=== PATIENT | female | born 1980 | race Caucasian/White ===

== ENCOUNTER → 2018-03-27 13:34 | Outpatient (CLI) | payer MEDICAID, SELFPAY ==
[2018-04-01 17:18] LABS: HPV HC, High Risk Negative (Negative)
== END ==
PROVIDERS: Visit Provider Obstetrics & Gynecology
DX: Z12.4 Encounter for screening for malignant neoplasm of cervix (principal)
CPT/HCPCS: 87624; 88175; G0145

== ENCOUNTER → 2018-06-12 14:18 | Outpatient (CLI) | payer MEDICAID, SELFPAY ==
[2018-06-12 16:40] LABS: hCG Titer Quant., Serum 16022 mIU/mL (<9 non-preg)
[2018-06-12 18:05] LABS: Chlamydia Trachomatis by PCR Negative (Negative); Neisserai gonorrhoeae by PCR Negative (Negative); Probe Check PASS; Sample Adequacy Control PASS; Specimen Processing Control PASS
[2018-06-17 15:41] LABS: HPV Reflexed? NOT INDICATED
== END ==
PROVIDERS: Visit Provider Obstetrics & Gynecology
DX: O20.0 Threatened abortion (principal); Z32.01 Encounter for pregnancy test, result positive; Z12.4 Encounter for screening for malignant neoplasm of cervix; Z11.3 Encounter for screening for infections with a predominantly sexual mode of transmission; Z3A.00 Weeks of gestation of pregnancy not specified
CPT/HCPCS: 36415; 84702; 87491; 87591; 88175; G0145

== ENCOUNTER → 2018-06-17 13:38 | Outpatient (CLI) | payer MEDICAID, SELFPAY | PROVIDERS: Visit Provider Obstetrics & Gynecology | DX: Z34.81 Encounter for supervision of other normal pregnancy, first trimester (principal) | CPT/HCPCS: 36415; 84702 ==

== ENCOUNTER → 2018-06-26 15:17 | Outpatient (CLI) | payer MEDICAID, SELFPAY ==
[2018-06-26 17:11] LABS: Absolute Lymphocyte Count 2.35 X10^3/ul (0.83-4.51); Absolute Neutrophil Count 5.7 X10^3/uL (2.0-7.7); Basophil# 0.07 X10^3/uL; Basophil% 0.8 % (0-1); Eosinophil# 0.16 X10^3/uL; Eosinophils% 1.8 % (0-5); Hemoglobin 14.4 g/dl (12.0-15.0); Lymphocyte # 2.35 X10^3/ul (4.0); Mean Corp Hgb Conc 33.5 g/gl (32-36); Mean Corpuscular Volume 86.7 fL (81-99); Mean Platelet Vol. 9.8 fl (6.2-12.0); Monocyte# 0.74 X10^3/uL; Monocyte% 8.2 % (0-10); Neutrophil # 5.68 X10^3/uL (2.7-7.7); Neutrophil % 62.8 % (47-70); Platelet Count 393 K/mm3 (150-450); RBC Distribution Width CV 13.6 % (11.6-14.6); Red Blood Count 4.96 M/mm3 (4.2-5.4)
[2018-06-26 17:18] LABS: Color, Urine Yellow (Yellow); Glucose, Dipstick Normal (Normal); Ketone-Dipstick Negative (Negative); Leukocyte Esterase-Dipstick Negative /ul (Negative); Nitrite-Dipstick Negative (Negative); Occult Blood-Urine Negative /ul (Negative); Protein-Dipstick Negative (Negative); Urine Bilirubin Dipstick Negative (Negative); Urine Clarity Clear (Clear); Urine Urobilinogen Normal (Normal)
[2018-06-26 17:30] LABS: POSITIVE COUNT NO; POSITIVE DIFFERENTIAL NO; POSITIVE MORPHOLOGY NO
[2018-06-26 17:44] LABS: Thyroid Stim Hormone (TSH) 0.96 uIU/mL (0.358-3.74)
[2018-06-26 17:51] LABS: Amphetamine Urine VISTA POSITIVE (<1000 ng/mL); Barbiturate Urine VISTA NEGATIVE (< 200 ng/mL); Benzodiazepine Urine VISTA NEGATIVE (< 200 ng/mL); Cocaine Urine VISTA NEGATIVE (< 300 ng/mL); Ecstacy Urine VISTA NEGATIVE (< 500 ng/mL); Methadone Urine VISTA NEGATIVE (< 300 ng/mL); PCP Urine VISTA NEGATIVE (< 25 ng/mL); THC Urine VISTA NEGATIVE (< 50 ng/mL); Vista UDS pH Range 6
[2018-06-27 00:19] LABS: Prenatal RPR NONREACTIVE (NONREACTIVE)
[2018-06-27 11:01] LABS: HIV - WCH Non-Reactive (Nonreactive); Rubella IgG 79.5 IU/mL
[2018-06-28 13:45] LABS: HEPATITIS B SURFACE AG Negative (Negative)
[2018-06-28 13:46] LABS: Hep C Antibodies 0.1 s/co ratio (0.0-0.9)
== END ==
PROVIDERS: Visit Provider Obstetrics & Gynecology
DX: Z34.81 Encounter for supervision of other normal pregnancy, first trimester (principal)
CPT/HCPCS: 36415; 80307; 81002; 84443; 85025; 86703; 86762; 86803; 87340

== ENCOUNTER 2018-07-29 05:35 | Day surgery (SDC) | payer MEDICAID, SELFPAY ==
[2018-07-29] VITALS (8 sets, daily range): BP systolic 104–153; BP diastolic 68–100; PULSE 18–102; RESP 16–20; TEMP 36.3–36.6; O2SAT 97–100; BMI 23.9
[2018-07-29 06:35] LABS: Hematocrit 40.4 % (37-47); Hemoglobin 13.9 g/dl (12.0-15.0); Mean Corp Hgb Conc 34.4 g/gl (32-36); Mean Corpuscular Hgb 29.2 pg (27.0-32.0); Mean Corpuscular Volume 84.9 fL (81-99); Mean Platelet Vol. 9.3 fl (6.2-12.0); Platelet Count 342 K/mm3 (150-450); RBC Distribution Width CV 13.2 % (11.6-14.6); RBC Distribution Width SD 40.9 fl (35.1-43.9); Red Blood Count 4.76 M/mm3 (4.2-5.4); White Blood Count 19.8 K/mm3 (4.4-11.0)
[2018-07-29 06:41] LABS: International Normalized Ratio 0.9; Partial Thromboplast Time 27.3 Seconds (24.1-36.2); Prothrombin Time (Protime)PT. 12.2 SECONDS (11.7-14.9)
[2018-07-29 06:42] LABS: Scan Indicated on CBC? Y/N NO
--- NOTE | 2018-07-29 07:30 | POC_PTH ---
PATIENT: NATANAEL HARLEY LOC: [facility] [place] U#:[id number] AGE/SX: 37/F ROOM: RE07/29/[address]: Dr. Nas Pillai MD : [id number] BED: DIS: 07/29/2018 SPEC #: [id number] RECD: 07/29/18 09:10 STATUS: MOISE ROMMEL #: [id number] DAVON: 07/29/18 07:[address]: Nas Pillai DEPT: SURGICAL PATHOLOGY RECD BY: Kumar Hagen ENTERED: 07/29/18 10:19 SP TYPE: PROD CONC OTHR DR: No Primary Care Phys Tissues: Product of conception, NOS Procedures: Surgery Specimen Level IV HEADER OPERATION: Dilation and curettage, suction PRE-OP DIAGNOSIS: Missed TISSUE SUBMITTED: Products of conception MICROSCOPIC DIAGNOSIS Products of conception: Immature chorionic villi, decidual and gestational endometrium (products of conception). SJ:yasmany 07/30/18 MICROSCOPIC DESCRIPTION Slides are reviewed. GROSS DESCRIPTION Received in fixative is one container labeled with the patient's name and designated products of conception. The specimen consists of multiple irregular fragments of red-horowitz soft tissue that in aggregate measure 10.5 x 7 x 2 cm. parts are not grossly recognized. Cab Supervisor sections are submitted in one cassette. / AM:yasmany 07/29/18 TC:5 CPT: 47675
--- NOTE | 2018-07-29 07:55 | PCM.DC ---
You will use the following diet at home:: No restrictions Your food should be the consistency of: Regular Discharge Activity: Return to Normal Activity, May Drive, May not drive while taking narcotic pain medications., May Shower Return to work on:: 08/01/18 May resume sexual activity in: 3 weeks Call your doctor if your incision/area has: Sudden Increased Bleeding, Increased Pain/ Swelling, Foul Smelling Discharge Call your doctor if you observe: Fever of 101 or Higher, Inability to urinate, Inability to have a bowel movement, Using more than one pad per hour, Shortness of breath, Chest pain, Calf discomfort, Uncontrolled pain Cleanse incision/area with: Soap & Water Allergies/Adverse Reactions: Allergies No Known Allergies Allergy (Verified 07/25/18 09:21) Medications to take at Discharge Ibuprofen [Ibuprofen Ib] 200 mg PO PRN PRN 07/25/18 Ibuprofen 600 mg PO Q6H PRN PRN #30 tab 07/29/18 Oxycodone [Oxyir] 5 mg PO Q4H PRN PRN 7 Days #14 tab 07/29/18 The following prescriptions were given: Oxycodone [Oxyir] 5 mg PO Q4H PRN PRN 7 Days #14 tab PRN Reason: Severe Pain (6-10/10) Ibuprofen 600 mg PO Q6H PRN PRN #30 tab PRN Reason: pain or cramping Primary Care Physician: Care Physician,No Primary [Primary Care Provider] - Test Results: Test results from this visit will be discussed in further detail at your follow-up appointment, if applicable. Please Follow Up With: Nas Pillai MD When: one week Proposed Discharge Date: 07/29/18
--- NOTE | 2018-07-29 07:57 | PCM.OPRPT ---
Problem List (1) Missed with demise before 20 completed weeks of gestation Status: Acute Report of Operation Date of Procedure: 07/29/18 Pre-Operative Diagnosis: Missed Post-Operative Diagnosis: Same Surgery/Procedure Performed:: Suction Dilation and Curretage Description of Surgical Findings:: Uterus 10 weeks size. Cervix with open external OS. Products of conception consistent with embryonic demised at about 10 weeks EGA. sanding machine tender automatic: None Type of Anesthesia:: MAC Anesthesiologist: Fawad Bedoya Special Medications: none Specimen's removed: Products of conception Drains: none Estimated Blood Loss (mL): 20cc Fluids Replaced: 1000cc LR Description of Procedure: Linda was taken to the OR with IV running. Was given Cefotetan 2 grams intravenously for surgical prophylaxis. MAC anesthesia was introduced without complication. She was then prepped and draped in the dorsal lithotomy position. The bladder was drained. A weighted speculum was placed and the anterior lip of the cervix was grasped with a single toothed tenaculum. The cervix was dilated to 27 Monegasque. A 9mm suction curette was placed into the uterine cavity. Suction was applied and products of conception obtained. The suction curette was removed and a sharp curettage was performed. The suction curette was reintroduced and the remaining products of conception obtained. Hemostasis was excelolent. All instruments were removed from the vagina. Sponge and instrument counts were correct. SHe was reversed from anesthesia and taken to the recovery room in stable condition. SHe had previously been given Rhogam in the office last week. Grafts/Implants Used: none - Complications none - Admit VTE Documentation VTE Present on Admission: No VTE Mechan Device Prophylaxis: SCD's VTE Pharm Prophylaxis ordered?: No
== END 2018-07-29 09:29 | disposition home or self-care (01) ==
LOC: SDC 05:40 → AC 05:44
PROVIDERS: Visit Provider Obstetrics & Gynecology
PROC: (CPT 59820; principal; 2018-07-29 07:15)
DX: O02.1 Missed abortion (principal); F17.200 Nicotine dependence, unspecified, uncomplicated; F90.9 Attention-deficit hyperactivity disorder, unspecified type
CPT/HCPCS: 59820; 85027; 85610; 85730; 86850; 86870; 86900; 88305; J7120

== ENCOUNTER 2018-08-23 10:08 | Emergency (ER) | payer MEDICAID, SELFPAY ==
[2018-08-23 10:09] VITALS: BP 167/114; PULSE 108; RESP 14; TEMP 36.9; O2SAT 100; BMI 23.1
--- NOTE | 2018-08-23 10:27 | US_ITS ---
STUDY: ULTRASOUND TRANSVAGINAL CLINICAL: Female, 37 years old. Pelvic pain. Recent DTC on 08/05/2018 TECHNIQUE: Transvaginal. Significant tenderness and pain, limited exam COMPARISON: None. FINDINGS: Normal uterine size measuring 7.2 x 8.2 x 6.8 cm in maximal craniocaudal dimension. There are no myometrial masses. Fluid distended endometrium measuring roughly 1.4 cm in thickness. Normal uterine cervix. Nonvisualized ovaries There is no free fluid in the pelvis. US/Transvaginal Non- IMPRESSION: Fluid distended endometrium with thickening. Nonvisualized ovaries. Electronically Signed: Vitaly Almaraz DO at 11:47 EDT Tel , Service support ,
--- NOTE | 2018-08-23 10:31 | ED.DCSUM_ITS ---
- ER Visit Summary Date of Service: 08/23/18 Chief Complaint: Abdominal pain History of Present Illness: The patient is a 37 F who presents for 3 weeks of intermittent lateral lower abdominal pain. Patient states she had a D&C 3 weeks ago after a miscarriage at 8 weeks . Since then patient has been having intermittent lower abdominal crampiness that alternates sides. It is worse with movement and bending over. Patient has taken gabapentin without any relief but has not tried any Tylenol or NSAIDs. She began having vaginal bleeding yesterday which is like a normal period, however she said her beverage host did not think she should be having a period yet. Patient states she spoke to her g ynecologist but did not really get an answer on her abdominal pain. She denies fever, nausea, vomiting, diarrhea, blood in her stool. She has had discomfort with urination and hematuria. Patient is also concerned about her blood pressure being high today. Physical Examination: Vital signs: afebrile, hemodynamically stable, no hypoxia on room air General: well nourished, well developed, in no distress Skin: warm, dry, no rash, no pallor HEENT: normocephalic and atraumatic; PERRL, EOMI, moist mucous membranes Cardiovascular: regular rate and rhythm without murmurs, no peripheral edema, 2+ pulses all distal extremities Respiratory: No increased work of breathing, lungs are clear to auscultation bilaterally, no rales, rhonchi or wheezing Abdominal: Abdomen is soft, mildly tender diffusely with normoactive bowel sounds, no guarding or rebound, no masses : Normal external genitalia, speculum exam shows small amount of homogenous dark blood without clots in the vaginal vault, no discharge, no tissue, no bright red blood, no lacerations or lesions. Cervix not directly visualized secondary to patient discomfort with the exam. Manual exam showed office closed, no cervical motion tenderness, no adnexal masses, mild bilateral adnexal tenderness. MSK: Moves all extremities, no deformities, normal strength Neuro: Awake and alert, oriented ?4. No facial droop, sensation and motor function intact and symmetric Test Results: Abnormal Lab Results 08/23/18 08/23/18 08/23/18 10:15 10:15 10:30 WBC 7.0 RBC 4.50 Hgb 13.2 Hct 39.5 MCV 87.8 MCH 29.3 MCHC 33.4 RDW 13.9 RDW Differential 44.9 H Plt Count 318 MPV 9.2 Immature Gran % (Auto) 0.400 Neut % (Auto) 51.2 Lymph % (Auto) 32.7 Duval % (Auto) 11.0 H Eos % (Auto) 3.3 Baso % (Auto) 1.4 H Absolute Neuts (auto) 3.6 Absolute Lymphs (auto) 2.30 Total Counted Not Reportable Sodium Potassium Chloride Carbon Dioxide Anion Gap BUN Creatinine Estim Creat Clear Calc Est GFR (MDRD) Af Amer Est GFR (MDRD) Non-Af BUN/Creatinine Ratio Glucose Calcium Total Bilirubin AST ALT Alkaline Phosphatase Total Protein Albumin Globulin Albumin/Globulin Ratio Lipase Urine Color Red Urine Clarity Turbid Urine pH 7.0 Ur Specific [place] 1.015 Urine Protein 100 H Urine Glucose (UA) Normal Urine Ketones Negative Urine Occult Blood 250 H Urine Nitrite Negative Urine Bilirubin Negative Urine Urobilinogen Normal Ur Leukocyte Esterase 25 H Urine RBC > 100 SEEN Urine WBC 0-5 SEEN Ur Squamous Epith Cells 0-5 SEEN Urine Bacteria 0 SEEN Urine Mucus 0 SEEN Urine Test Negative 08/23/18 10:30 WBC RBC Hgb Hct MCV MCH MCHC RDW RDW Differential Plt Count MPV Immature Gran % (Auto) Neut % (Auto) Lymph % (Auto) Duval % (Auto) Eos % (Auto) Baso % (Auto) Absolute Neuts (auto) Absolute Lymphs (auto) Total Counted Sodium 142 Potassium 3.6 Chloride 106 Carbon Dioxide 29.0 Anion Gap 7 BUN 12 Creatinine 0.95 Estim Creat Clear Calc 69.33 Est GFR (MDRD) Af Amer 84 Est GFR (MDRD) Non-Af 70 BUN/Creatinine Ratio 12.6 Glucose 92 Calcium 9.1 Total Bilirubin 0.30 AST 19 ALT 30 Alkaline Phosphatase 74 Total Protein 7.6 Albumin 4.0 Globulin 3.6 Albumin/Globulin Ratio 1.1 Lipase 140 Urine Color Urine Clarity Urine pH Ur Specific [place] Urine Protein Urine Glucose (UA) Urine Ketones Urine Occult Blood Urine Nitrite Urine Bilirubin Urine Urobilinogen Ur Leukocyte Esterase Urine RBC Urine WBC Ur Squamous Epith Cells Urine Bacteria Urine Mucus Urine Test Clinical Impression(s) from Imaging Studies Transvaginal US 08/23/18 10:27 IMPRESSION: Fluid distended endometrium with thickening. Nonvisualized ovaries. Electronically Signed: Vitaly Almaraz DO at 11:47 EDT Tel , Service support , Medications Given Discontinued Medications Ketorolac Tromethamine (Toradol) 15 mg IV X1 ONE Stop: 08/23/18 10:29 Last Admin: 08/23/18 10:55 Dose: 15 mg Emergency Department Course and Treatment: Patient was given IV Toradol for her pain. Abdominal exam did not show any concerns for an acute surgical abdomen. Labs and a urinalysis were obtained. Transvaginal ultrasound performed. Urinalysis showed hematuria without infection. Labs were unremarkable, including for or anemia. Pelvic exam was consistent with a menstrual period and showed no cervical motion tenderness or significant adnexal tenderness that would be concerning for torsion or tubo-ovarian abscess. Pelvic ultrasound showed no ovarian or adnexal pathology and showed a uterus consistent with a menstrual period, with no heterogenicity that would be concerning for further retained products of conception. Patient was discussed with Dr. Melanie Ramirez, who requested patient follow-up in the office this week if she continues to have issues. Patient was given a prescription for naproxen to help with her abdominal pain. In my professional opinion, her acutely worsening intermittent lower abdominal pain is most likely uterine cramping secondary to dysmenorrhea. While discussing the results and the plan with the patient, she mentioned her blood pressure and asked why it has been high. I instructed patient I would be back shortly to discuss the blood pressure with her. Patient left before I could return and discuss her concern for hypertension. Patient was hypertensive in the emergency department, but left without giving me the opportunity to develop a treatment and follow-up plan for her. Her labs showed no signs of endorgan damage. Treatment Plan: [] Disposition: [] Impression: Dysmenorrhea, abdominal cramping, uncontrolled hypertension This note was generated with DBVu dictation software. It may contain incorrect words, spelling, and punctuation that were not noted in review of the chart prior to signing ED Disposition - Plan for ED Patient: Disposition: Home or Assisted Living Chief Complaint: Abd Pain Instructions: ED Cramping Menstrual Prescriptions: RX: Naproxen [Naprosyn] 500 mg PO BID PRN #20 tab Referrals: Nas Pillai MD [STAFF PHYSICIAN] - 1 Week if not improving Care Physician,No Primary [Primary Care Provider] - Additional Instructions: Your bleeding is likely due to a normal menstrual period. Please use the naproxen for abdominal cramping. Follow-up with your OB physician this week if you continue to have concerns about your lower abdominal pain and menstrual?like bleeding. If you have any worsening of your condition or any new concerning symptoms, please return immediately to the emergency department for another evaluation.
[2018-08-23 10:35] LABS: Bacteria 0 SEEN /hpf (None Seen); Mucous, Urine 0 SEEN /hpf (<or=2+)
[2018-08-23 10:48] LABS: Absolute Neutrophil Count 3.6 X10^3/uL (2.0-7.7); Basophil% 1.4 % (0-1); Eosinophil# 0.23 X10^3/uL; Eosinophils% 3.3 % (0-5); Hematocrit 39.5 % (37-47); Hemoglobin 13.2 g/dl (12.0-15.0); Lymphocyte % 32.7 % (19-41); Mean Corp Hgb Conc 33.4 g/gl (32-36); Mean Corpuscular Hgb 29.3 pg (27.0-32.0); Mean Corpuscular Volume 87.8 fL (81-99); Mean Platelet Vol. 9.2 fl (6.2-12.0); Monocyte# 0.77 X10^3/uL; Neutrophil % 51.2 % (47-70); POSITIVE COUNT NO; POSITIVE DIFFERENTIAL NO; POSITIVE MORPHOLOGY NO; Platelet Count 318 K/mm3 (150-450); RBC Distribution Width CV 13.9 % (11.6-14.6); RBC Distribution Width SD 44.9 fl (35.1-43.9)
[2018-08-23 10:48] LABS: Internal QC Validated? YES +Cl - CLEAR BKGD
[2018-08-23 10:49] LABS: Pregnancy, Urine Negative Negative
[2018-08-23 10:51] LABS: Color, Urine Red (Yellow); Glucose, Dipstick Normal (Normal); Ketone-Dipstick Negative (Negative); Leukocyte Esterase-Dipstick 25 /ul (Negative); Nitrite-Dipstick Negative (Negative); Occult Blood-Urine 250 /ul (Negative); Protein-Dipstick 100 mg/dl (Negative); Specific Gravity, Urine 1.015 (1.002-1.030); Urine Bilirubin Dipstick Negative (Negative); Urine Clarity Turbid (Clear); Urine Urobilinogen Normal (Normal)
[2018-08-23] MEDS: Ketorolac 15 MG/ML Vial IV (10:55)
[2018-08-23 10:57] LABS: Red Blood Cells-Urine > 100 SEEN /hpf (0-5)
[2018-08-23 10:58] LABS: Squamous Epithelial Cells - UA 0-5 SEEN /hpf (5-10); White Blood Cells 0-5 SEEN /hpf (0-5)
[2018-08-23 11:01] LABS: ALB/GLOB Ratio 1.1 RATIO (0.9-2.4); AST(SGOT) 19 U/L (15-37); Alanine Aminotransfer ALT/SGPT 30 U/L (13-56); Alkaline Phosphatase 74 U/L (45-117); Anion Gap 7 (5-15); BUN 12 mg/dL (7-18); BUN/Creat Ratio 12.6 RATIO (10-20); Calcium,Total 9.1 mg/dL (8.5-10.1); Chloride 106 mmol/L (98-107); Creatinine, Serum 0.95 mg/dL (0.55-1.02); EST Glomerular Filtration Rate 70 mL/min (>60); Est Glom Filt Rate - Afr Amer 84 mL/min (>60); Estimated Creatinine Clearance 69.33 ml/min; Globulin 3.6 g/dL (2.2-4.2); Glucose 92 mg/dL (74-106); Lipase 140 U/L (73-393); Potassium 3.6 mmol/L (3.5-5.1); Protein, Total 7.6 g/dL (6.4-8.2); Sodium Level 142 mmol/L (136-145)
[2018-08-23 11:24] VITALS: BP 166/111; PULSE 96; RESP 21; O2SAT 99
--- NOTE | 2018-08-23 12:07 | ED.DEP ---
ED Disposition - Plan for ED Patient: Disposition: Home or Assisted Living Chief Complaint: Abd Pain Instructions: ED Cramping Menstrual Prescriptions: Naproxen [Naprosyn] 500 mg PO BID PRN #20 tab Referrals: Care Physician,No Primary [Primary Care Provider] - Nas Pillai MD [STAFF PHYSICIAN] - 1 Week if not improving Additional Instructions: Your bleeding is likely due to a normal menstrual period. Please use the naproxen for abdominal cramping. Follow-up with your OB physician this week if you continue to have concerns about your lower abdominal pain and menstrual?like bleeding. If you have any worsening of your condition or any new concerning symptoms, please return immediately to the emergency department for another evaluation.
[2018-08-23 12:21] VITALS: BP 161/111; PULSE 111; RESP 15; O2SAT 100
== END 2018-08-23 12:38 | disposition home or self-care (01) ==
PROVIDERS: Emergency Provider Emergency Medicine
DX: N94.6 Dysmenorrhea, unspecified (principal); R10.9 Unspecified abdominal pain; I10 Essential (primary) hypertension; R30.0 Dysuria; R31.9 Hematuria, unspecified; Z72.0 Tobacco use; Z98.890 Other specified postprocedural states
CPT/HCPCS: 76830; 80053; 81001; 81025; 83690; 85025; 99283; A4216

== ENCOUNTER → 2018-10-21 13:47 | Outpatient (CLI) | payer MEDICAID, SELFPAY ==
[2018-10-23 09:41] LABS: ANTINUCLEAR ANTIBODIES DIRECT Negative (Negative)
--- OUTSIDE RECORDS SUMMARY | 2018-12-17 03:10 | XMS RPT_ITS ---
:1980 Author Organization [facility] Care Team Providers Name Role Phone MENDY NANCE Attending Unavailable MENDY NANCE Attending Unavailable DILLON LAURENT Attending Unavailable OTILIO PILLAI Referring Unavailable NO PRIMARY CAREMD Primary Care Unavailable Rosas, Otilio Attending Unavailable Seals, Otilio Attending Unavailable SealOtilio hoover Attending Unavailable SealOtilio hoover Attending Unavailable Sealkiko, Otilio Attending Unavailable Otilio Pillai Referring Unavailable Primay Care Physicia, No Primary Care Unavailable Primay Care Physicia, No Primary Care Unavailable Rhonda Ibanez Attending Unavailable SealOtilio hoover Attending Unavailable Primay Care Physicia, No Primary Care Unavailable PROBLEMS PROBLEMS DATE TYPE CONDITION / CODE ATTENDING STATUS SOURCE 10/26/2018 Active Other specified MENDY NANCE Active [place] disorders of eye and [facility] Other adnexa / Linch H57.89(ICD-10) Repository 11/04/2018 Unknown N96 - Recurrent SealsOtilio loss / Community N96(ICD-10) Hospital Repository 09/13/2018 Active Other symptoms and MENDY NANCE Active [place] signs involving [facility] Other emotional state / Linch R45.89(ICD-10) Repository 09/13/2018 Active Elevated MENDY NANCE Active [place] blood-pressure [facility] Other reading, without Linch diagnosis of Repository hypertension / R03.0(ICD-10) 07/31/2018 Unknown G89.18 - Other acute SealsOtilio postprocedural pain Community / G89.18(ICD-10) Hospital Repository 06/26/2018 Unknown Z34.81 - Encounter SealsOtilio for supervision of [facility] other normal Hospital , first Repository trimester / Z34.81(ICD-10) 06/12/2018 Unknown O20.0 - Threatened SealsOtilio / Community O20.0(ICD-10) Hospital Repository 03/27/2018 Unknown Z12.4 - Encounter SealsOtilio for screening for [facility] malignant neoplasm Hospital of cervix / Repository Z12.4(ICD-10) PROCEDURES PROCEDURES No Procedure Records FoundRESULTS RESULTS ED PROV NOTE Observed: 10/26/2018 Status: COMPLETED Source: [place] 8:03 PM [facility] RE[facility]ITORY HNO ID: [id number] Author: Mnedy Wall DO Service: Emergency Medicine Author Type: Physician Type: ED Provider Notes Filed: 10/26/2018 9:28 PM Note Text: ED Provider Note Patient Name: Natanael Swanson SERVICE DATE: 10/26/18 History Patient presents with: Eye Pain Natanael Swanson is a 38 year old female with history of ADD, hypercholesterolemia who presents with Eye Pain. Patient took OTC medications prior to arrival. - Symptoms began this afternoon. - Severity: moderate - Timing: constant - Quality: irritated - Eye Pain is exacerbated by putting anything in her eye/anything touching her eye. - Eye Pain is not exacerbated by not touching it. - Symptoms are associated with blurry vision, feels like something is in her eye. - Symptoms are not associated with headache, vomiting, nausea, weakness, loss of vision. - Improved by nothing. - Not improved by OTC medications and time. Patient states she felt like something got in her left eye a few hours ago. It has felt irritated. States she feels like something is on the left upper/outer area of her eye. Her SO went and got visine drops and it made it worse when she put them in. She flushed her eye out. As long as she doesn't touch her eye or put anything in it, it does not bother her much, just irritated, if she puts anything in it, then it bothers her more. Light irritates her eye. Eye is watery. Vision is blurry. No vision loss. No increased pain in a dark room. No headache or vomiting. No trauma. She does not wear contacts. PAST MEDICAL HISTORY Diagnosis Date - ADD (attention deficit disorder) - Hypercholesterolemia - Spontaneous miscarriage x 2 - Tobacco abuse - Vitamin D deficiency PAST SURGICAL HISTORY Procedure Laterality Date - NONE FAMILY HISTORY Problem Relation Age of Onset - other (add [Other]) Brother - Thyroid Mother - Colon Cancer Unknown NONE - Breast Cancer Unknown NONE - Arthritis Sister psoriatic - Arthritis Father - Arthritis Mother - Arthritis Paternal Grandmother Social History Social History Main Topics - Smoking status: Current Every Day Smoker Packs/day: 1.00 Years: 12.00 Types: Cigarettes - Smokeless tobacco: Never Used - Alcohol use Yes Comment: socially - Drug use: No - Sexual activity: Yes Partners: Male ALLERGIES No Known Allergies Review of Systems Constitutional: Negative for chills and fever. HENT: Negative for facial swelling, sinus pain and sinus pressure. Eyes: Positive for photophobia, pain, redness and visual disturbance. Negative for discharge and itching. Respiratory: Negative for shortness of breath. Cardiovascular: Negative for chest pain. Gastrointestinal: Negative for nausea and vomiting. Musculoskeletal: Negative for neck pain. Skin: Negative for color change, pallor, rash and wound. Allergic/Immunologic: Negative for immunocompromised state. Neurological: Negative for dizziness, syncope, facial asymmetry, weakness, numbness and headaches. Psychiatric/Behavioral: Negative for agitation and confusion. Physical Exam BP 153/98 Pulse 104 Temp 98.1 Resp 16 Ht 5' 4 (1.63m) Wt 135 lb (61.2kg) SpO2 99% BMI 23.16 kg/(m2). Physical Exam Constitutional: She is oriented to person, place, and time. She appears well-developed and well-nourished. No distress. HENT: Head: Normocephalic and atraumatic. Right Ear: External ear normal. Left Ear: External ear normal. Mouth/Throat: Oropharynx is clear and moist. No temporal artery tenderness or swelling bilaterally. Eyes: Pupils are equal, round, and reactive to light. EOM and lids are normal. Lids are everted and swept, no foreign bodies found. Right eye exhibits no chemosis and no discharge. Left eye exhibits no chemosis and no discharge. Right conjunctiva is not injected. Right conjunctiva has no hemorrhage. Left conjunctiva is injected. Left conjunctiva has no hemorrhage. No scleral icterus. Slit lamp exam: The left eye shows fluorescein uptake (? slight uptake ?). The left eye shows no corneal ulcer, no foreign body, no hyphema, no hypopyon and no anterior chamber bulge. Both pupils are equal and reactive to light. No FB seen ? Slight small area of uptake on cornea but no well defined abrasion seen. No dendrites. Negative danyel's sign. Lid everted, no FB under eyelid, I did sweep the eyelid with a cotton tip applicator and no FB seen on cotton tip. Neck: Normal range of motion. No JVD present. Cardiovascular: Normal rate, regular rhythm and intact distal pulses. Pulmonary/Chest: Effort normal and breath sounds normal. No stridor. No respiratory distress. Neurological: She is alert and oriented to person, place, and time. Skin: Skin is warm and dry. Capillary refill takes less than 2 seconds. She is not diaphoretic. Psychiatric: She has a normal mood and affect. Her behavior is normal. Nursing note and vitals reviewed. Diagnostic Testing ED Labs Ordered and Reviewed - No data to display Procedures ED Course / Clinical Impression Clinical Impressions as of Oct 26 2102 Eye irritation MDM / Disposition / Plan ? Small uptake on left cornea. No well defined abrasion. No FB. Pupils equal and reactive. She notes the sensation that something is in her eye, but did flush her eye out multiple times. No headache, vomiting, vision loss or temporal artery tenderness/swelling. Her eye appears irritated and she has the sensation of irritation more than pain. Will treat her with antibiotic eye drops. I discussed following up with ophthalmology (she states she is due for a full eye exam anyway) and have given referral to Dr. Weiss, I stressed the importance of returning to the ED for any new/worsening symptoms. Patient is agreeable to plan. Disposition The patient was discharged. Counseled patient and significant other regarding suspected diagnosis. As well as the need for follow-up. Discharged home with verbal and written instructions. They were instructed to return as needed for persistent or worsening symptoms or any new concerns. Condition at disposition is stable. SIGNATURE: DO Mendy Vale DO 10/26/182127 ED NOTE Observed: 10/26/2018 Status: COMPLETED Source: [place] 7:33 PM [facility] REPOSITORY HNO ID: [id number] Author: Eliu Snell (Rn) Minh RN Service: (none) Author Type: Registered Nurse Type: ED Notes Filed: 10/26/2018 7:33 PM Note Text: Dr Nance at bedside. ED NOTE Observed: 10/26/2018 Status: COMPLETED Source: [place] 7:20 PM [facility] REPOSITORY HNO ID: [id number] Author: Eliu Snell (Rn) Minh RN Service: (none) Author Type: Registered Nurse Type: ED Notes Filed: 10/26/2018 7:20 PM Note Text: Patient informed the name of medication, why we are giving it, possible side effects, what they may expect to feel, and was offered a chance to ask questions, prior to the administration of tetracaine ED NOTE Observed: 10/26/2018 Status: COMPLETED Source: [place] 7:09 PM [facility] REPOSITORY HNO ID: [id number] Author: Eliu BryanRn) Minh RN Service: (none) Author Type: Registered Nurse Type: ED Notes Filed: 10/26/2018 7:10 PM Note Text: L eye pain; unknown injury; redness noted. MISCELLANEOUS LAB Collected: 10/21/2018 Status: F Source: [place] PROCEDURE 2 1:51 PM [facility] REPOSITORY Order Comment: Comments: #[id number] ANTIPHOSPHOLIPID AB, FZ PLASMA, SERUM RMT List Test(s) Ordered by Physician: #[id number] ANTIPHOSPHOLIPID AB, FZ PLASMA, RMT SERUM TYPE CODE TESTS RESULT OUT OF RANGE REFERENCE UNITS LAB L801.1543 Normal [facility] TEST 2 Result Comment: TEST RESULT LIMITS Antiphospholipid Syndrome aPTT 27.4 sec 22.9 - 30.2 PT 10.6 sec 9.6 - 11.5 INR 1.0 0.9 - 1.1 Reference interval is for non-anticoagulated patients. Suggested INR therapeutic range for Vitamin K antagonist therapy: Standard Dose (moderate intensity therapeutic range): 2.0 - 3.0 Higher intensity therapeutic range 2.5 - 3.5 Thrombin Time 16.6 sec 0.0 - 23.0 dRVVT 37.3 sec 0.0 - 47.0 Hexagonal Phase Phospholipid 6 sec 0 - 11 Anticardiolipin Ab,IgG,Qn <9 GPL U/mL 0 - 14 Negative: <15 Indeterminate: 15 - 20 Low-Med Positive: >20 - 80 High Positive: >80 Anticardiolipin Ab,IgM,Qn <9 MPL U/mL 0 - 12 Negative: <13 Indeterminate: 13 - 20 Low-Med Positive: >20 - 80 High Positive: >80 Beta-2 Glycoprotein I Ab, IgG <9 GPI IgG units 0 - 20 Please Note: The reference interval reflects a 3SD or 99th percentile interval, which is thought to represent a potentially clinically significant result in accordance with the International Consensus Statement on the classification criteria for definitive antiphospholipid syndrome (APS). J Thromb Haem 2006;4:295-306. Beta-2 Glycoprotein I Ab, IgM <9 GPI IgM units 0 - 32 Please Note: The reference interval reflects a 3SD or 99th percentile interval, which is thought to represent a potentially clinically significant result in accordance with the International Consensus Statement on the classification criteria for definitive antiphospholipid syndrome (APS). J Thromb Haem 2006;4:295-306. APS Panel Interpretation Please refer to the Coag Studies Interp Report. Coag Studies Interp Report Interpretation Note COAGULATION: ANTIPHOSPHOLIPID SYNDROME ASSESSMENT ASSESSMENT A lupus anticoagulant is not detected. aCL and B2GP1 antibodies are normal. ANTIPHOSPHOLIPID SYNDROME ASSESSMENT SUMMARY - No evidence of a lupus anticoagulant, B2GP1 or aCL antibodies. As antibody titers may fluctuate with time, repeat testing may be indicated if antiphospholipid syndrome is suspected. ANTIPHOSPHOLIPID SYNDROME ASSESSMENT DEFINITIONS - aCL- anticardiolipin (antibodies to cardiolipin); B2GP1- antibodies to Beta-2 Glycoprotein 1; LA- lupus anticoagulant (which is identified with the dRVVT and/or hexagonal phospholipid neutralization assays); aPL- antibodies to protein/phospholipid complexes such as LA, aCL, and B2GP1 antibodies; APS- antiphospholipid syndrome; DTI-direct thrombin inhibitors. - HEATER TENDER: For questions regarding panel interpretation, please contact Cristiano Selby M.D. at [facility]/[employer] at . DISCLAIMER These assessments and interpretations are provided as a convenience in support of the physician-patient relationship and are not intended to replace the physician's clinical judgment. They are derived from national guidelines in addition to other evidence and expert opinion. The clinician should consider this information within the context of clinical opinion and the individual patient. SEE GUIDANCE FOR ANTIPHOSPHOLIPID SYNDROME ASSESSMENT:(1) Breanna V et al. J Thromb Haemost. 2009; 7(10):5318-9334. (2) Kelly S et al. J Thromb Haemost. 2006;4(2):295-306. (3) Adi DA et al. Blood. 2007;110(9): 4480-1951. TESTING PERFORMED AT [facility]. ORIGINAL REPORT ON FILE IN LAB CONTAINS ADDITIONAL TEST SITE INFORMATION. Performed By: #### L801.1543 #### [facility] [address] [place], [address] ANTINUCLEAR ANTIBODIES Collected: 10/21/2018 Status: F Source: [place] DIRECT 1:50 PM [facility] REPOSITORY TYPE CODE TESTS RESULT OUT OF RANGE REFERENCE UNITS LAB L3100.5475 Negative Normal Negative BRI-DIRECT Result Comment: Performed at: [address] [id number] Senior Compensation Analyst: Indio Arnold PhD, Phone: [phone] Performed By: #### L3100.5475 #### [facility] (refer to report for specific site) refer to report for address and phone number FACT V LEIDEN Collected: 10/21/2018 Status: F Source: [place] MUTATION 1:50 PM [facility] REPOSITORY TYPE CODE TESTS RESULT OUT OF RANGE REFERENCE UNITS LAB L4500.5100 . Normal FACTOR V Comment LEIDEN Result Comment: Result: Negative (no mutation found) Factor V Leiden is a specific mutation (R506Q) in the factor V gene that is associated with an increased risk of venous thrombosis. Factor V Leiden is more resistant to inactivation by activated protein C. As a result, factor V persists in the circulation leading to a mild hyper- coagulable state. The Leiden mutation accounts for 90% - 95% of APC resistance. Factor V Leiden has been reported in patients with deep vein thrombosis, pulmonary embolus, central retinal vein occlusion, cerebral sinus thrombosis and hepatic vein thrombosis. Other risk factors to be considered in the workup for venous thrombosis include the [id number] mutation in the factor II (prothrombin) gene, protein S and C deficiency, and antithrombin deficiencies. Anticardiolipin antibody and lupus anticoagulant analysis may be appropriate for certain patients, as well as homocysteine levels. Contact your local [facility] for information on how to order additional testing if desired. Genetic counselors are available for health care providers to discuss results at [phone] Methodology: DNA analysis of the Factor V gene was performed by allele- specific PCR. The diagnostic sensitivity and specificity is >99% for both. Molecular-based testing is highly accurate, but as in any laboratory test, diagnostic errors may occur. All test results must be combined with clinical information for the most accurate interpretation. This test was developed and its performance characteristics determined by [facility]. It has not been cleared or approved by the Food and Drug Administration. References: Cintia Jones (1995). Clin Lab Med 16:169-186. Jovana Srinivasan, PhD, FAC Fabiana Galarza, PhD, FACMG Beto GardunoS., PhD, FAC Madelyn Nina, PhD, FACMG Walter Payne, PhD, FAC Chalino Li PhD, FAC Performed By: #### L4500.5000, L4500.8350 #### [facility] (refer to report for specific site) refer to report for address and phone number VON WILLEBRAND FACTOR Collected: 10/21/2018 Status: F Source: [place] ACTIVITY 1:50 PM [facility] REPOSITORY TYPE CODE TESTS RESULT OUT OF RANGE REFERENCE UNITS LAB L4500.8350 50-200 % Normal vWF ACTIVITY 60 Result Comment: Performed at: - [facility] [address] [place], [place] [id number] Senior Compensation Analyst: Sharyn Beck MD, Phone: [phone] Performed at: BN - [facility] [address] [id number] Senior Compensation Analyst: Nasreen Gil MD, Phone: [phone] Performed By: #### L4500.5000, L4500.8350 #### [facility] (refer to report for specific site) refer to report for address and phone number MISCELLANEOUS LAB Collected: 10/21/2018 Status: F Source: [place] PROCEDURE 1:50 PM [facility] REPOSITORY Order Comment: Comments: #[id number] INHERITED THROMBO PANEL, WB, PLASMA AND SERUM Test(s) Ordered: #[id number] INHERITED THROMBO PANEL, WB, PLASMA ,SER TYPE CODE TESTS RESULT OUT OF RANGE REFERENCE UNITS LAB L801.1541 Normal [facility] TEST Result Comment: TEST RESULT LIMITS Inherited Thromb. of Antithrombin Activity 131 % 75 - 135 Direct Xa inhibitor anticoagulants such as rivaroxaban, apixaban and edoxaban will lead to spuriously elevated antithrombin activity levels possibly masking a deficiency. Protein C-Functional 187 High % 73 - 180 Elevated protein C activity is of no known clinical significance. Protein S, Free 134 % 57 - 157 This test was developed and its performance characteristics determined by [facility]. It has not been cleared or approved by the Food and Drug Administration. Act.Prt.C Resist. 2.5 ratio 2.2 - 3.5 The APCR result may be falsely increased (masking an abnormal, low APCR result) in patients on direct Xa inhibitor (e.g., rivaroxaban, apixaban, edoxaban) or a direct thrombin inhibitor (e.g., dabigatran) anticoagulant therapy due to assay interference by these drugs. Factor II, DNA Analysis NEGATIVE No mutation identified. Comment: A point mutation ([id number]) in the factor II (prothrombin) gene is the second most common cause of inherited thrombophilia. The incidence of this mutation in the [place] population is about 2% and in the population it is approximately 0.5%. This mutation is rare in the and population. Being heterozygous for a prothrombin mutation increases the risk for developing venous thrombosis about 2 to 3 times above the general population risk. Being homozygous for the prothrombin gene mutation increases the relative risk for venous thrombosis further, although it is not yet known how much further the risk is increased. In women heterozygous for the prothrombin gene mutation, the use of estrogen containing oral contraceptives increases the relative risk of venous thrombosis about 16 times and the risk of developing cerebral thrombosis is also significantly increased. In the prothrombin gene mutation increases risk for venous thrombosis and may increase risk for stillbirth, placental abruption, pre-eclampsia and growth restriction. If the patient possesses two or more congenital or acquired thrombophilic risk factors, the risk for thrombosis may rise to more than the sum of the risk ratios for the individual mutations. This assay detects only the prothrombin [id number] mutation and does not measure genetic abnormalities elsewhere in the genome. Other thrombotic risk factors may be pursued through systematic clinical laboratory analysis. These factors include the R506Q (Leiden) mutation in the Factor V gene, plasma homocysteine levels, as well as testing for deficiencies of antithrombin III, protein C and protein S. Additional Information: Genetic Counselors are available for health care providers to discuss results at [phone] Methodology: DNA analysis of the Factor II gene was performed by PCR amplification followed by restriction analysis. The diagnostic sensitivity is >99% for both. All the tests must be combined with clinical information for the most accurate interpretation. Molecular-based testing is highly accurate, but as in any laboratory test, diagnostic errors may occur. This test was developed and its performance characteristics determined by [facility]. It has not been cleared or approved by the Food and Drug Administration. Tylert SR, et al. Blood. 1996; 88:5111-1963. Brandy MUELLER. Circulation. 2004; 110:e15-e18. Jose I, et al. Arterioscler Thromb Vasc Biol. 1999; 19:700-703. Jovana Srinivasan, PhD, [facility] Fabiana Galarza, PhD, [facility] Mable Boles M.S., PhD, [facility] Madelyn Nina, PhD, [facility] Walter Payne, PhD, [facility] Chalino Li, PhD, [facility] TESTING PERFORMED AT [facility]. ORIGINAL REPORT ON FILE IN LAB CONTAINS ADDITIONAL TEST SITE INFORMATION. Performed By: #### L801.1541 #### [facility] [address] [place], [place], [address] ED NOTE Observed: 09/13/2018 Status: COMPLETED Source: [place] 6:09 PM [facility] REPOSITORY HNO ID: [id number] Author: Darren BryanRn) RIYA Bejarano Service: Emergency Medicine Author Type: Registered Nurse Type: ED Notes Filed: 09/13/2018 6:10 PM Note Text: Patient states she is feeling much better. Physician aware. Will recheck BP in 5 [id number] after registration is done. ED PROV NOTE Observed: 09/13/2018 Status: COMPLETED Source: [place] 5:54 PM [facility] RE[facility] HNO ID: [id number] Author: Mendy Wall DO Service: Emergency Medicine Author Type: Physician Type: ED Provider Notes Filed: 09/13/2018 6:27 PM Note Text: ED Provider Note Patient Name: Natanael Swanson SERVICE DATE: 09/13/18 History Patient presents with: Anxiety Blood Pressure Check Natanael Swanson is a 38 year old female with history of miscarriage, hypercholesterolemia who presents with anxiety. The patient arrived escorted by significant other. - Symptoms began 2 weeks prior to arrival. Onset was gradual, and symptoms are waxing/waning. - Severity: moderate - Timing: intermittent - Chronicity: new - Context: stressful life event - Treatment compliance: some of the time - Time since last psychoactive mediation taken: yesterday - Symptoms are associated with crying. - Symptoms are not associated with chest pain and shortness of breath, abdominal pain, leg pain or swelling, suicidal ideation, hallucinations. - Improved by nothing. - Not improved by hydroxyzine. - Risk factors: recent stressful event Patient has a miscarriage a couple weeks ago, has been anxious, tearful off and on since. Has tried hydroxyzine which has not helped. No chest pain, shortness of breath, abdominal pain, leg pain or swelling. No suicidal or homicidal ideation. No hallucinations. No previous psychiatric admission. PAST MEDICAL HISTORY Diagnosis Date - ADD (attention deficit disorder) - Hypercholesterolemia - Spontaneous miscarriage x 2 - Tobacco abuse - Vitamin D deficiency PAST SURGICAL HISTORY Procedure Laterality Date - NONE FAMILY HISTORY Problem Relation Age of Onset - other (add [Other]) Brother - Thyroid Mother - Colon Cancer Unknown NONE - Breast Cancer Unknown NONE - Arthritis Sister psoriatic - Arthritis Father - Arthritis Mother - Arthritis Paternal Grandmother Social History Social History Main Topics - Smoking status: Current Every Day Smoker Packs/day: 1.00 Years: 12.00 Types: Cigarettes - Smokeless tobacco: Never Used - Alcohol use Yes Comment: socially - Drug use: No - Sexual activity: Yes Partners: Male ALLERGIES No Known Allergies Review of Systems Constitutional: Negative for chills and fever. Respiratory: Negative for cough and shortness of breath. Cardiovascular: Negative for chest pain, palpitations and leg swelling. Gastrointestinal: Negative for abdominal pain, nausea and vomiting. Genitourinary: Negative for dysuria and flank pain. Musculoskeletal: Negative for back pain and neck pain. Skin: Negative for rash and wound. Allergic/Immunologic: Negative for immunocompromised state. Neurological: Negative for dizziness, syncope, weakness, numbness and headaches. Psychiatric/Behavioral: Negative for agitation, behavioral problems, confusion, hallucinations, self-injury and suicidal ideas. The patient is nervous/anxious. Physical Exam BP 169/107 Pulse 100 Temp (Src) 99.1 (Temporal Artery) Resp 18 Ht 5' 4 (1.63m) Wt 140 lb (63.5kg) SpO2 100% BMI 24.02 kg/(m2). Physical Exam Constitutional: She is oriented to person, place, and time. She appears well-developed and well-nourished. HENT: Head: Normocephalic and atraumatic. Right Ear: External ear normal. Left Ear: External ear normal. Eyes: Conjunctivae are normal. No scleral icterus. Neck: No JVD present. Cardiovascular: Normal rate, regular rhythm and intact distal pulses. Pulmonary/Chest: Effort normal and breath sounds normal. No respiratory distress. Abdominal: Soft. Bowel sounds are normal. She exhibits no distension. There is no tenderness. There is no rebound and no guarding. Musculoskeletal: She exhibits no edema. Neurological: She is alert and oriented to person, place, and time. Skin: Skin is warm. Capillary refill takes less than 2 seconds. No rash noted. Psychiatric: Her behavior is normal. Her mood appears anxious (tearful). Nursing note and vitals reviewed. Diagnostic Testing ED Labs Ordered and Reviewed - No data to display Procedures ED Course / Clinical Impression Clinical Impressions as of Sep 13 1825 Feeling anxious Elevated blood pressure reading without diagnosis of hypertension MDM / Disposition / Plan Patient anxious/stressed since recent miscarriage. Hydroxyzine not helping. No suicidal or homicidal ideation, no hallucinations. Ativan given and will observe. Time: 623 pm Patient feels much better. Patient states she is no longer anxious. She is smiling. Blood pressure improved, as well. The patient was told to follow up with their PCP because their BP was elevated (over 119/79) I instructed the patient on reasons to return to the ED, otherwise follow up with primary (referral given). Disposition The patient was discharged. Counseled patient and significant other regarding suspected diagnosis. As well as the need for follow-up. Discharged home with verbal and written instructions. They were instructed to return as needed for persistent or worsening symptoms or any new concerns. Condition at disposition is stable. SIGNATURE: DO Mendy Vale DO 09/13/18 1827 ED NOTE Observed: 09/13/2018 Status: COMPLETED Source: [place] 5:30 PM [facility] RE[facility] ID: [id number] Author: Draren (Rn) RIYA Bejarano Service: Emergency Medicine Author Type: Registered Nurse Type: ED Notes Filed: 09/13/2018 5:31 PM Note Text: Patient informed: the name of medication, why we are giving it, possible side effects, what they may expect to feel, and was offered a chance to ask questions, prior to the administration of ativan ED NOTE Observed: 09/13/2018 Status: COMPLETED Source: [place] 5:28 PM [facility] REPOSITORY [facility] ID: [id number] Author: Lashonda BryanRn) RIYA Briones Service: Emergency Medicine Author Type: Registered Nurse Type: ED Notes Filed: 09/13/2018 5:29 PM Note Text: Pt reports having anxiety attacks for the passed 2 weeks; pt reports 4th miscarriage about that time. Pt reports intermittent issues with elevated BP, not presently on medication. EMERGENCY DEPARTMENT Observed: 08/23/2018 Status: F Source: [place] SUMMARY 5:55 PM [facility] REPOSITORY [facility] Medical Records Department [address] [place] [address] Emergency Department Summary 08/23/18 1029 MR#: [id number] Acct: [id number] Name: NATANAEL SWANSON Rep #: [id number] : 1980 37 From: Rhonda Ibanez MD PCP: Care Physician, No Primary Status: DEP ER - ER Visit Summary Date of Service: 08/23/18 Chief Complaint: Abdominal pain History of Present Illness: The patient is a 37 F who presents for 3 weeks of intermittent lateral lower abdominal pain. Patient states she had a D AND C 3 weeks ago after a miscarriage at 8 weeks . Since then patient has been having intermittent lower abdominal crampiness that alternates sides. It is worse with movement and bending over. Patient has taken gabapentin without any relief but has not tried any Tylenol or NSAIDs. She began having vaginal bleeding yesterday which is like a normal period, however she said her hospice director did not think she should be having a period yet. Patient states she spoke to her hospice director but did not really get an answer on her abdominal pain. She denies fever, nausea, vomiting, diarrhea, blood in her stool. She has had discomfort with urination and hematuria. Patient is also concerned about her blood pressure being high today. Physical Examination: Vital signs: afebrile, hemodynamically stable, no hypoxia on room air General: well nourished, well developed, in no distress Skin: warm, dry, no rash, no pallor HEENT: normocephalic and atraumatic; PERRL, EOMI, moist mucous membranes Cardiovascular: regular rate and rhythm without murmurs, no peripheral edema, 2+ pulses all distal extremities Respiratory: No increased work of breathing, lungs are clear to auscultation bilaterally, no rales, rhonchi or wheezing Abdominal: Abdomen is soft, mildly tender diffusely with normoactive bowel sounds, no guarding or rebound, no masses : Normal external genitalia, speculum exam shows small amount of homogenous dark blood without clots in the vaginal vault, no discharge, no tissue, no bright red blood, no lacerations or lesions. Cervix not directly visualized secondary to patient discomfort with the exam. Manual exam showed office closed, no cervical motion tenderness, no adnexal masses, mild bilateral adnexal tenderness. MSK: Moves all extremities, no deformities, normal strength Neuro: Awake and alert, oriented 4. No facial droop, sensation and motor function intact and symmetric Test Results: Abnormal Lab Results WBC 7.0 RBC 4.50 Hgb 13.2 Hct 39.5 MCV 87.8 MCH 29.3 MCHC 33.4 RDW 13.9 RDW Differential 44.9 H WBC RBC Hgb Hct MCV MCH Clinical Impression(s) from Imaging Studies Transvaginal US 08/23/18 10:27 IMPRESSION: Fluid distended endometrium with thickening. Nonvisualized ovaries. Electronically Signed: Vitaly Almaraz DO at 11:47 EDT Tel , Service support , Medications Given Discontinued Medications Ketorolac Tromethamine (Toradol) 15 mg IV X1 ONE Stop: 08/23/18 10:29 Last Admin: 08/23/18 10:55 Dose: 15 mg Emergency Department Course and Treatment: Patient was given IV Toradol for her pain. Abdominal exam did not show any concerns for an acute surgical abdomen. Labs and a urinalysis were obtained. Transvaginal ultrasound performed. Urinalysis showed hematuria without infection. Labs were unremarkable, including for or anemia. Pelvic exam was consistent with a menstrual period and showed no cervical motion tenderness or significant adnexal tenderness that would be concerning for torsion or tubo-ovarian abscess. Pelvic ultrasound showed no ovarian or adnexal pathology and showed a uterus consistent with a menstrual period, with no heterogenicity that would be concerning for further retained products of conception. Patient was discussed with Dr. Melanie Ramirez, who requested patient follow-up in the office this week if she continues to have issues. Patient was given a prescription for naproxen to help with her abdominal pain. In my professional opinion, her acutely worsening intermittent lower abdominal pain is most likely uterine cramping secondary to dysmenorrhea. While discussing the results and the plan with the patient, she mentioned her blood pressure and asked why it has been high. I instructed patient I would be back shortly to discuss the blood pressure with her. Patient left before I could return and discuss her concern for hypertension. Patient was hypertensive in the emergency department, but left without giving me the opportunity to develop a treatment and follow-up plan for her. Her labs showed no signs of endorgan damage. Treatment Plan: [] Disposition: [] Impression: Dysmenorrhea, abdominal cramping, uncontrolled hypertension This note was generated with Kalist[employer] dictation software. It may contain incorrect words, spelling, and punctuation that were not noted in review of the chart prior to signing ED Disposition - Plan for ED Patient: Disposition: Home or Assisted Living Chief Complaint: Abd Pain Instructions: ED Cramping Menstrual Prescriptions: RX: Naproxen [Naprosyn] 500 mg PO BID PRN #20 tab Referrals: Otilio Pillai MD [STAFF PHYSICIAN] - 1 Week if not improving Care Physician,No Primary [Primary Care Provider] - Additional Instructions: Your bleeding is likely due to a normal menstrual period. Please use the naproxen for abdominal cramping. Follow-up with your OB physician this week if you continue to have concerns about your lower abdominal pain and menstrual like bleeding. If you have any worsening of your condition or any new concerning symptoms, please return immediately to the emergency department for another evaluation. What to do if you have Problems For any increased pain, shortness of breath, bleeding, nausea or vomiting, chest pain, or any unexpected problems, contact your Primary Care Provider. Call [facility] ([phone]) or report to the closest Emergency Room. Call 911 if necessary. 08/23/18 1755 <Electronically signed by Rhonda Ibanez MD> Date Rhonda Ibanez MD Cosigner Signature (If Indicated): Date CC: No Primary Care Physician DISCHARGE INSTRUCTION Observed: 08/23/2018 Status: F Source: [place] 5:24 PM [facility] REPOSITORY [facility] Medical Records Department [address] [place] [address] Discharge Instruction 08/23/18 1207 MR#: [id number] Acct: [id number] Name: NATANAEL SWANSON Rep #: [id number] : 1980 37 From: Rhonda Ibanez MD PCP: Care Physician, No Primary Status: DEP ER ED Disposition - Plan for ED Patient: Disposition: Home or Assisted Living Chief Complaint: Abd Pain Instructions: ED Cramping Menstrual Prescriptions: Naproxen [Naprosyn] 500 mg PO BID PRN #20 tab Referrals: Care Physician,No Primary [Primary Care Provider] - Otilio Pillai MD [STAFF PHYSICIAN] - 1 Week if not improving Additional Instructions: Your bleeding is likely due to a normal menstrual period. Please use the naproxen for abdominal cramping. Follow-up with your OB physician this week if you continue to have concerns about your lower abdominal pain and menstrual like bleeding. If you have any worsening of your condition or any new concerning symptoms, please return immediately to the emergency department for another evaluation. What to do if you have Problems For any increased pain, shortness of breath, bleeding, nausea or vomiting, chest pain, or any unexpected problems, contact your Primary Care Provider. Call [facility] ([phone]) or report to the closest Emergency Room. Call 911 if necessary. 08/23/18 0980 <Electronically signed by Rhonda Ibanez MD> Date Rhonda Ibanez MD Cosigner Signature (If Indicated): Date CC: No Primary Care Physician CBC W/DIFF, AUTOMATED Collected: 08/23/2018 Status: F Source: [place] 10:30 AM [facility] REPOSITORY TYPE CODE TESTS RESULT OUT OF RANGE REFERENCE UNITS LAB L100.1000 4.4-11.0 K/mm3 Normal WBC 7.0 LAB L100.1200 4.2-5.4 M/mm3 Normal RBC 4.50 LAB L100.1300 12.0-15.0 g/dl Normal HGB 13.2 LAB L100.1400 37-47 % Normal HCT 39.5 LAB L100.1500 81-99 fL Normal MCV 87.8 LAB L100.1600 27.0-32.0 pg Normal MCH 29.3 LAB L100.1700 32-36 g/gl Normal MCHC 33.4 LAB L100.1810 11.6-14.6 % Normal RDW CV 13.9 LAB L100.1820 35.1-43.9 fl High RDW SD 44.9 LAB L100.1900 150-450 K/mm3 Normal PLT 318 LAB L100.2000 6.2-12.0 fl Normal MPV 9.2 LAB L100.2100 47-70 % Normal NEUT% 51.2 LAB L100.2200 19-41 % Normal LY% 32.7 LAB L100.2300 0-10 % High MONO% 11.0 LAB L100.2400 0-5 % Normal EO% 3.3 LAB L100.2500 0-1 % High BASO% 1.4 LAB L100.2550 0.0-0.9 % Normal IM GRAN % 0.400 Result Comment: IG% - Immature Granulocytes (promyelocytes, myelocytes and metamyelocytes) > 1% indicates that a LEFT SHIFT is Present. LAB L100.2620 2.0-7.7 X10 3/uL Normal Absolute Neut 3.6 LAB L100.2720 0.83-4.51 X10 3/ul Normal Absolute Lymph 2.30 Performed By: #### L100.0100 #### [facility] [address] [place], [address] COMPREHENSIVE METABOLIC Collected: 08/23/2018 Status: F Source: [place] 10:30 AM [facility] REPOSITORY TYPE CODE TESTS RESULT OUT OF RANGE REFERENCE UNITS LAB L501.0100 74-106 mg/dL Normal GLU 92 Result Comment: Please note revised GLUCOSE reference range effective 2017. LAB L501.1000 7-18 mg/dL Normal BUN 12 LAB L501.1100 0.55-1.02 mg/dL Normal CREAT,SERUM 0.95 Result Comment: The validity of the calculated GFR AND GFRAA in patients over 70 years has not been determined. Clinical correlation is essential. LAB L501.1110 >60 mL/min Normal EST GFR 70 Result Comment: Non- GFR Calc LAB L501.1115 >60 mL/min Normal EST GFR - AA 84 Result Comment: GFR Calc LAB L501.1255 ml/min Normal Estimated CRCL 69.33 LAB L501.1300 10-20 RATIO Normal BUN/CRE 12.6 LAB L501.1500 6.4-8. g/dL Normal 2 T PROT 7.6 LAB L501.1800 3.2-5. g/dL Normal 0 ALB 4.0 LAB L501.1950 2.2-4. g/dL Normal 2 GLOB 3.6 LAB L501.2000 0.9-2. RATIO Normal 4 A/G 1.1 LAB L501.2200 8.5-10 mg/dL Normal .1 CA 9.1 LAB L501.4100 15-37 U/L Normal AST 19 LAB L501.4305 45-117 U/L Normal ALK P 74 LAB L501.4405 13-56 U/L Normal ALT 30 LAB L501.4600 0.20-1 mg/dL Normal .00 T BILI 0.30 LAB L501.5300 136-14 mmol/L Normal 5 NA 142 LAB L501.5600 3.5-5. mmol/L Normal 1 K 3.6 LAB L501.5900 98-107 mmol/L Normal CL 106 LAB L501.6100 21.0-3 mmol/L Normal 2.0 CO2 29.0 LAB L501.6200 5-15 Normal GAP 7 Performed By: #### L500.4050, L501.2450 #### [facility] [address] [place], [address] LIPASE Collected: 08/23/2018 Status: F Source: [place] 10:30 AM [facility] REPOSITORY TYPE CODE TESTS RESULT OUT OF RANGE REFERENCE UNITS LAB L501.2450 73-393 U/L Normal LIPASE 140 Performed By: #### L500.4050, L501.2450 #### [facility] [address] [place], [address] TRANSVAGINAL Observed: 08/23/2018 Status: F Source: [place] NON- 10:29 AM [facility] REPOSITORY [facility] Imaging Services [address] [place] [address] Transvaginal Non- MR#: [id number] Acct: [id number] Name: NATANAEL SWANSON Digna Rep #: [id number] : 1980 F 37 From: Vitaly Almaraz DO PCP: Care Physician, No Primary Status: DEP ER Study: Transvaginal Non- Date of Exam: 08/23/18 Exam# [id number] Ordering Dr: Rhonda Ibanez MD ADDENDUM by Vitaly Almaraz D.O. on 09/22/18 at 1510 ADDENDUM Apparently, imaging of provided by the technologist was images of the bladder and not images of the uterus. This is a nondiagnostic exam. Electronically Signed: Vitaly Almaraz DO at 15:10 EDT Tel , Service support , 09/22/18 1510 Date cc: No Primary Care Physician; Rhonda Ibanez MD * Signed ADDENDUM by Vitaly Almaraz D.O. on 09/22/18 at 1510 US/Transvaginal Non- 09/22/18 1517 Date cc: No Primary Care Physician; Rhonda Ibanez MD * Signed STUDY: ULTRASOUND TRANSVAGINAL CLINICAL: Female, 37 years old. Pelvic pain. Recent DTC on 08/05/2018 TECHNIQUE: Transvaginal. Significant tenderness and pain, limited exam COMPARISON: None. FINDINGS: Normal uterine size measuring 7.2 x 8.2 x 6.8 cm in maximal craniocaudal dimension. There are no myometrial masses. Fluid distended endometrium measuring roughly 1.4 cm in thickness. Normal uterine cervix. Nonvisualized ovaries There is no free fluid in the pelvis. US/Transvaginal Non- IMPRESSION: Fluid distended endometrium with thickening. Nonvisualized ovaries. Electronically Signed: Vitaly Almaraz DO at 11:47 EDT Tel , Service support , CC: No Primary Care Physician; Rhonda Iabnez MD Neurodiagnostic Technologist: Signed ,URINE Collected: 08/23/2018 Status: F Source: [place] 10:15 AM [facility] REPOSITORY Order Comment: Order Date: 08/23/18 Has pt arrived? Y TYPE CODE TESTS RESULT OUT OF REFERENCE UNITS RANGE LAB L400.8000 Negative Normal HCGUQUAL Negative Result Comment: Very dilute urine specimens, as indicated by a low specific gravity, may not contain group sales representative levels of hCG. If is still suspected, a first morning urine specimen should be collected 48 hours later and tested. Performed By: #### L400.7600 #### [facility] [address] [place], [address] URINALYSIS, COMPLETE Collected: 08/23/2018 Status: F Source: [place] 10:15 AM [facility] REPOSITORY Order Comment: Order Date: 08/23/18 Has pt arrived? Y COLOR OF URINE MAY AFFECT DIPSTICK RESULTS. How was Urine Obtained? CLEAN CATCH TYPE CODE TESTS RESULT OUT OF RANGE REFERENCE UNITS LAB L400.3000 Yellow COLOR Normal Red LAB L400.3050 Clear Normal CLARITY Turbid LAB L400.3200 Normal mg/dl Normal GLUCOSE, UR Normal LAB L400.3300 Negative mg/dL Normal BILIRUBIN URINE Negative LAB L400.3400 Negative mg/dl Normal KETONE UR Negative LAB L400.3465 1.002-1.030 Normal SP.GR. DIPSTX 1.015 LAB L400.3550 5.0 - 8.0 pH UR Normal 7.0 LAB L400.3600 Negative mg/dl High PROT DIPSTX 100 LAB L400.3700 Normal mg/dl Normal UROBILI Normal LAB L400.3750 Negative Normal NITRITE UR Negative LAB L400.3780 Negative /ul High OCCULT BLOOD-UR 250 LAB L400.3800 Negative /ul High LEUK 25 ESTERASE LAB L400.4050 0-5 /hpf WBC Normal 0-5 SEEN LAB L400.4100 0-5 /hpf > Normal RBC-UA 100 SEEN LAB L400.4150 5-10 /hpf SQUAM Normal EPI 0-5 SEEN LAB L400.4300 None Seen /hpf 0 Normal BACTERIA SEEN LAB L400.4350 <or=2+ /hpf 0 Normal MUCUS, URINE SEEN Performed By: #### L400.0001 #### [facility] [address] [place], [address] OPERATIVE REPORT Observed: 07/29/2018 Status: F Source: [place] 8:04 AM [facility] REPOSITORY [facility] Medical Records Department [address] [place] [address] Operative Report 07/29/18 0757 MR#: [id number] Acct: [id number] Name: NATANAEL SWANSON Rep #: [id number] : 1980 37 From: Otilio Pillai MD PCP: Care Physician, No Primary Status: REG [facility] Y Location: [place] [address] Problem List (1) Missed with demise before 20 completed weeks of gestation Status: Acute Report of Operation Date of Procedure: 07/29/18 Pre-Operative Diagnosis: Missed Post-Operative Diagnosis: Same Surgery/Procedure Performed:: Suction Dilation and Curretage Description of Surgical Findings:: Uterus 10 weeks size. Cervix with open external OS. Products of conception consistent with embryonic demised at about 10 weeks EGA. osteologist: None Type of Anesthesia:: MAC Anesthesiologist: Fawad Bedoya Special Medications: none Specimen's removed: Products of conception Drains: none Estimated Blood Loss (mL): 20cc Fluids Replaced: 1000cc LR Description of Procedure: Natanael was taken to the OR with IV running. Was given Cefotetan 2 grams intravenously for surgical prophylaxis. MAC anesthesia was introduced without complication. She was then prepped and draped in the dorsal lithotomy position. The bladder was drained. A weighted speculum was placed and the anterior lip of the cervix was grasped with a single toothed tenaculum. The cervix was dilated to 27 [place]. A 9mm suction curette was placed into the uterine cavity. Suction was applied and products of conception obtained. The suction curette was removed and a sharp curettage was performed. The suction curette was reintroduced and the remaining products of conception obtained. Hemostasis was excelolent. All instruments were removed from the vagina. Sponge and instrument counts were correct. SHe was reversed from anesthesia and taken to the recovery room in stable condition. SHe had previously been given Rhogam in the office last week. Grafts/Implants Used: none - Complications none - Admit VTE Documentation VTE Present on Admission: No VTE Mechan Device Prophylaxis: SCD's VTE Pharm Prophylaxis ordered?: No 07/29/18 0804 <Electronically signed by Otilio Pillai MD> Date Otilio Pillai MD CC: No Primary Care Physician; Otilio Pillai MD Signed DISCHARGE INSTRUCTION Observed: 07/29/2018 Status: F Source: [place] 7:57 AM [facility] REPOSITORY [facility] Medical Records Department [address] [place] [address] Instructions for Home/Discharge Instructions 07/29/18 0755 MR#: [id number] Acct: [id number] Name: NATANAEL SWANSON Rep #: [id number] : 1980 37 From: Otilio Pillai MD PCP: Care Physician, No Primary Status: REG [facility] You will use the following diet at home:: No restrictions Your food should be the consistency of: Regular Discharge Activity: Return to Normal Activity, May Drive, May not drive while taking narcotic pain medications., May Shower Return to work on:: 08/01/18 May resume sexual activity in: 3 weeks Call your doctor if your incision/area has: Sudden Increased Bleeding, Increased Pain/ Swelling, Foul Smelling Discharge Call your doctor if you observe: Fever of 101 or Higher, Inability to urinate, Inability to have a bowel movement, Using more than one pad per hour, Shortness of breath, Chest pain, Calf discomfort, Uncontrolled pain Cleanse incision/area with: Soap AND Water Allergies/Adverse Reactions: Allergies No Known Allergies Allergy (Verified 07/25/18 09:21) Medications to take at Discharge Ibuprofen [Ibuprofen Ib] 200 mg PO PRN PRN 07/25/18 Ibuprofen 600 mg PO Q6H PRN PRN #30 tab 07/29/18 Oxycodone [Oxyir] 5 mg PO Q4H PRN PRN 7 Days #14 tab 07/29/18 The following prescriptions were given: Oxycodone [Oxyir] 5 mg PO Q4H PRN PRN 7 Days #14 tab PRN Reason: Severe Pain (6-10/10) Ibuprofen 600 mg PO Q6H PRN PRN #30 tab PRN Reason: pain or cramping Primary Care Physician: Care Physician,No Primary [Primary Care Provider] - Test Results: Test results from this visit will be discussed in further detail at your follow-up appointment, if applicable. Please Follow Up With: Otilio Pillai MD When: one week Proposed Discharge Date: 07/29/18 07/29/18 0757 <Electronically signed by Otilio Pillai MD> Date Otilio Pillai MD CC: No Primary Care Physician PRODUCTS OF CONCEPTION Observed: 07/29/2018 Status: F Source: [place] 7:30 AM [facility] REPOSITORY Patient: NATANAEL SWANSON : 1980 (37/F) Acct Num: [id number] Phys: Rosas LOVE,Otilio Unit Num: [id number] Loc: [facility] Specimen: [id number] Received: 07/29/18909 Spec Type: PROD CONC TISSUES TISSUES: Product of conception, NOS GROSS DESCRIPTION Received in fixative is one container labeled with the patient's name and designated products of conception. The specimen consists of multiple irregular fragments of red-horowitz soft tissue that in aggregate measure 10.5 x 7 x 2 cm. parts are not grossly recognized. [employer] sections are submitted in one cassette. / AM:yasmany 07/29/18 TC:5 CPT: 52955 HEADER OPERATION: Dilation and curettage, suction PRE-OP DIAGNOSIS: Missed TISSUE SUBMITTED: Products of conception MICROSCOPIC DESCRIPTION Slides are reviewed. MICROSCOPIC DIAGNOSIS Products of conception: Immature chorionic villi, decidual and gestational endometrium (products of conception). SJ:yasmany 07/30/18 Signed Cliff Lee 07/30/18 <signature on file> Performed By: #### PPOC #### [facility] [address] [place], [place], [address] PROTHROMBIN TIME W/INR Collected: 07/29/2018 Status: F Source: [place] 6:23 AM [facility] REPOSITORY TYPE CODE TESTS RESULT OUT OF RANGE REFERENCE UNITS LAB L300.4150 11.7-14.9 SECONDS Normal PROTIME 12.2 LAB L300.4200 Normal INR 0.9 Performed By: #### L300.3900, L300.4310, L100.0500 #### [facility] [address] [place], [address] PARTIAL THROMBOPLAST Collected: 07/29/2018 Status: F Source: [place] 6:23 AM [facility] REPOSITORY TYPE CODE TESTS RESULT OUT OF RANGE REFERENCE UNITS LAB L300.4310 24.1-36.2 Seconds Normal PTT 27.3 Performed By: #### L300.3900, L300.4310, L100.0500 #### [facility] [address] [place], [address] CBC-COMPLETE BLOOD CNT Collected: 07/29/2018 Status: F Source: [place] NO DIFF 6:23 AM [facility] REPOSITORY TYPE CODE TESTS RESULT OUT OF RANGE REFERENCE UNITS LAB L100.1000 4.4-11.0 K/mm3 High WBC 19.8 LAB L100.1200 4.2-5.4 M/mm3 Normal RBC 4.76 LAB L100.1300 12.0-15.0 g/dl Normal HGB 13.9 LAB L100.1400 37-47 % Normal HCT 40.4 LAB L100.1500 81-99 fL Normal MCV 84.9 LAB L100.1600 27.0-32.0 pg Normal MCH 29.2 LAB L100.1700 32-36 g/gl Normal MCHC 34.4 LAB L100.1810 11.6-14.6 % Normal RDW CV 13.2 LAB L100.1820 35.1-43.9 fl Normal RDW SD 40.9 LAB L100.1900 150-450 K/mm3 Normal PLT 342 LAB L100.2000 6.2-12.0 fl Normal MPV 9.3 Performed By: #### L300.3900, L300.4310, L100.0500 #### [facility] [address] [place], [place], [id number] TYPE AND SCREEN Collected: 07/29/2018 Status: F Source: [place] 6:23 AM [facility] REPOSITORY Order Comment: Reason for Type AND Screen/Red Cells: SURGERY TYPE CODE TESTS RESULT OUT OF RANGE REFERENCE UNITS LAB B10.0800 O Normal BLOOD TYPE GEL NEGATIVE LAB B100.4000 High Antibody POSITIVE Screen Performed By: #### B101.7450, B101.1999 #### [facility] [address] [place], [address] ANTIBODY PANEL ID Collected: 07/29/2018 Status: F Source: [place] 6:23 AM [facility] REPOSITORY Order Comment: Reason for Type AND Screen/Red Cells: SURGERY TYPE CODE TESTS RESULT OUT OF REFERENCE UNITS RANGE LAB B101.1999 ANTIBODY PANEL ANTI-D Performed By: #### B101.7450, B101.1999 #### [facility] [address] [place], [address] URINE DRUG SCREEN Collected: 06/26/2018 Status: F Source: [place] (VISTA) 3:18 PM [facility] REPOSITORY Order Comment: List of Drugs Taken or Suspected? UNK TYPE CODE TESTS RESULT OUT OF RANGE REFERENCE UNITS LAB L505.0075 TO BE Normal CONFIRMED Result Comment: CONFIRMATORY TESTING FOR ALL POSITIVE URINE DRUG SCREEN RESULTS WILL ONLY BE SENT OUT UPON PHYSICIAN ORDER. VISTA Urine Drug Screen methods provide only preliminary analytical test results. A more specific alternate chemical method must be used in order to obtain a confirmed analytical result. Gas chromatography/mass spectrometery (GC/MS) is the preferred confirmatory method. Clinical consideration and professional judgement should be applied to any drug of abuse test result, particularly when preliminary positive results are used. URINE TCA TESTING MUST BE ORDERED SEPARATELY. USE TEST MNEMONIC: [facility] LAB L505.5005 VISTA UDS PH 6 Normal LAB L505.5015 <1000 High ng/mL AMPHETAMINES POSITIVE LAB L505.5025 < 200 ng/mL BARBITIURATES Normal NEGATIVE LAB L505.5035 < 200 ng/mL BENZODIAZIPINE Normal NEGATIVE LAB L505.5045 < 300 ng/mL COCAINE Normal NEGATIVE LAB L505.5055 < 500 ng/mL ECSTACY Normal NEGATIVE LAB L505.5065 < 300 ng/mL METHADONE Normal NEGATIVE LAB L505.5075 < 300 ng/mL OPIATES Normal NEGATIVE LAB L505.5085 < 25 ng/mL PCP Normal NEGATIVE LAB L505.5095 < 50 ng/mL THC Normal NEGATIVE Performed By: #### L505.5000 #### [facility] [address] [place], [address] URINALYSIS, ROUTINE Collected: 06/26/2018 Status: F Source: [place] (DIPSTICK) 3:18 PM [facility] REPOSITORY Order Comment: How was Urine Obtained? CLEAN CATCH TYPE CODE TESTS RESULT OUT OF RANGE REFERENCE UNITS LAB L400.3000 Yellow COLOR Normal Yellow LAB L400.3050 Clear Normal CLARITY Clear LAB L400.3200 Normal mg/dl Normal GLUCOSE, UR Normal LAB L400.3300 Negative mg/dL Normal BILIRUBIN URINE Negative LAB L400.3400 Negative mg/dl Normal KETONE UR Negative LAB L400.3465 1.002-1.030 Normal SP.GR. DIPSTX 1.010 LAB L400.3550 5.0 - 8.0 pH UR Normal 7.0 LAB L400.3600 Negative mg/dl PROT Normal DIPSTX Negative LAB L400.3700 Normal mg/dl Normal UROBILI Normal LAB L400.3750 Negative Normal NITRITE UR Negative LAB L400.3780 Negative /ul Normal OCCULT BLOOD-UR Negative LAB L400.3800 Negative /ul LEUK Normal ESTERASE Negative Performed By: #### L400.2010 #### [facility] [address] [place], [place], [address] CBC W/DIFF, AUTOMATED Collected: 06/26/2018 Status: F Source: [place] 3:18 PM [facility] REPOSITORY TYPE CODE TESTS RESULT OUT OF RANGE REFERENCE UNITS LAB L100.1000 4.4-11.0 K/mm3 Normal WBC 9.0 LAB L100.1200 4.2-5.4 M/mm3 Normal RBC 4.96 LAB L100.1300 12.0-15.0 g/dl Normal HGB 14.4 LAB L100.1400 37-47 % Normal HCT 43.0 LAB L100.1500 81-99 fL Normal MCV 86.7 LAB L100.1600 27.0-32.0 pg Normal MCH 29.0 LAB L100.1700 32-36 g/gl Normal MCHC 33.5 LAB L100.1810 11.6-14.6 % Normal RDW CV 13.6 LAB L100.1820 35.1-43.9 fl Normal RDW SD 43.0 LAB L100.1900 150-450 K/mm3 Normal PLT 393 LAB L100.2000 6.2-12.0 fl Normal MPV 9.8 LAB L100.2100 47-70 % Normal NEUT% 62.8 LAB L100.2200 19-41 % Normal LY% 26.0 LAB L100.2300 0-10 % Normal MONO% 8.2 LAB L100.2400 0-5 % Normal EO% 1.8 LAB L100.2500 0-1 % Normal BASO% 0.8 LAB L100.2550 0.0-0.9 % Normal IM GRAN % 0.400 Result Comment: IG% - Immature Granulocytes (promyelocytes, myelocytes and metamyelocytes) > 1% indicates that a LEFT SHIFT is Present. LAB L100.2620 2.0-7.7 X10 3/uL Normal Absolute Neut 5.7 LAB L100.2720 0.83-4.51 X10 3/ul Normal Absolute Lymph 2.35 Performed By: #### L100.0100 #### [facility] [address] [place] [address], [id number] THYROID STIM HORMONE Collected: 06/26/2018 Status: F Source: [place] (TSH) 3:18 PM [facility] REPOSITORY TYPE CODE TESTS RESULT OUT OF RANGE REFERENCE UNITS LAB L501.9520 0.358-3.74 uIU/mL Normal TSH 0.96 Performed By: #### L501.9520 #### [facility] [address] [place] [address], [id number] T AND S-NO Collected: 06/26/2018 Status: F Source: [place] CHARGE W/PNP 3:18 PM [facility] REPOSITORY Order Comment: Reason for Type AND Screen/Red Cells: Surgery? N TYPE CODE TESTS RESULT OUT OF RANGE REFERENCE UNITS LAB B10.0800 O Normal BLOOD NEGATIVE TYPE GEL LAB B100.4050 Normal Ab SCREEN NEGATIVE GEL Performed By: #### B100.7550 #### [facility] [facility] [place], [place], [address] RPR Collected: 06/26/2018 Status: F Source: [place] 3:18 PM [facility] REPOSITORY TYPE CODE TESTS RESULT OUT OF REFERENCE UNITS RANGE LAB L700.5100 NONREACTIVE Normal RPR NONREACTIVE Performed By: #### L700.5100 #### [facility] [address] [facility] [place], [place], [address] RUBELLA IGG Collected: 06/26/2018 Status: F Source: [place] 3:18 PM [facility] REPOSITORY TYPE CODE TESTS RESULT OUT OF RANGE REFERENCE UNITS LAB L509.4000 IU/mL Normal Rubella IgG 79.5 Result Comment: Antibody results Interpretation of Immune Status < 5 IU/ml Presumed Non-immune 5 - < 10 IU/ml Equivocal > or = 10 IU/ml Presumed Immune Performed By: #### L509.4000, L3890.6005 #### [facility] [address] [place], [place], [address] HIV - WCH Collected: 06/26/2018 Status: F Source: [place] 3:18 PM [facility] REPOSITORY TYPE CODE TESTS RESULT OUT OF RANGE REFERENCE UNITS LAB L3890.6005 Nonreactive Normal HIV - [facility] Non-Reactive Performed By: #### L509.4000, L3890.6005 #### [facility] [place], [place], [address] HEPATITIS B SURFACE Collected: 06/26/2018 Status: F Source: [place] AG 3:18 PM [facility] REPOSITORY TYPE CODE TESTS RESULT OUT OF RANGE REFERENCE UNITS LAB L3100.0400 Negative Normal HB Negative SURF AG Result Comment: Performed at: - [facility] [id number] Senior Compensation Analyst: Indio Arnold PhD, Phone: [phone] Performed By: #### L3100.0390, L3100.0625 #### [facility] (refer to report for specific site) refer to report for address and phone number HEPATITIS C ANTIBODIES Collected: 06/26/2018 Status: F Source: [place] 3:18 PM [facility] REPOSITORY TYPE CODE TESTS RESULT OUT OF RANGE REFERENCE UNITS LAB L3100.0650 0.0-0.9 s/co ratio Normal HEP C AB 0.1 Result Comment: Negative: < 0.8 Indeterminate: 0.8 - 0.9 Positive: > 0.9 The CDC recommends that a positive HCV antibody result be followed up with a HCV Nucleic Acid Amplification test (344623). Performed By: #### L3100.0390, L3100.0625 #### [facility] (refer to report for specific site) refer to report for address and phone number HCG TITER QUANT., Collected: 06/17/2018 Status: F Source: [place] SERUM 1:40 PM [facility] REPOSITORY TYPE CODE TESTS RESULT OUT OF RANGE REFERENCE UNITS LAB L700.8000 <9 non-preg mIU/mL High HCG 30785 QUANT. Performed By: #### L700.8000 #### [facility] [address] [place], [address] HCG TITER QUANT., Collected: 06/12/2018 Status: F Source: [place] SERUM 2:22 PM [facility] REPOSITORY TYPE CODE TESTS RESULT OUT OF RANGE REFERENCE UNITS LAB L700.8000 <9 non-preg mIU/mL High HCG 30337 QUANT. Performed By: #### L700.8000 #### [facility] [address] [place], [address] CT/NG WCH BY PCR Collected: 06/12/2018 Status: F Source: [place] 1:50 PM [facility] REPOSITORY TYPE CODE TESTS RESULT OUT OF RANGE REFERENCE UNITS LAB L8200.2100 Negative Normal Chlam Negative Trac PCR LAB L8200.2200 Negative Normal NG by Negative PCR Performed By: #### L8200.2000 #### [facility] [address] [place], [address] PAP I-G W/RFX HRHPV Collected: 06/12/2018 Status: F Source: [place] 1:50 PM [facility] REPOSITORY Order Comment: CYTOLOGY INFORMATION: - CLINICAL INFORMATION: - DATE LMP/MENOPAUSE: BEST GUESS 04/28/18 LMP - COLLECTION VIAL: Thin Prep Vial - SKETCH ARTIST SOURCE: CERVICAL/ENDOCERVICAL - COLLECTION TECHNIQUE: BRUSH/SPATULA Specimen Comment: [id number] Specimen Comment: No. of containers..01 ThinPrep Vial TYPE CODE TESTS RESULT OUT OF RANGE REFERENCE UNITS LAB L7400.0800 . Normal DIAGN Comment Result Comment: NEGATIVE FOR INTRAEPITHELIAL LESION AND MALIGNANCY. LAB L7400.0900 . Normal ADEQ Comment Result Comment: Satisfactory for evaluation. Endocervical and/or squamous metaplastic cells (endocervical component) are present. LAB L7400.1400 . Normal PERFORM Comment Result Comment: Angie Barrow Lgsw ([facility]) LAB L7400.2575 . Normal TEST METHOD Comment Result Comment: This liquid based ThinPrep(R) pap test was screened with the use of an image guided system. LAB L7400.2600 . Normal . COMM LAB L7400.2700 . Normal PAPSMR Comment Result Comment: The Pap smear is a screening test designed to aid in the detection of premalignant and malignant conditions of the uterine cervix. It is not a diagnostic procedure and should not be used as the sole means of detecting cervical cancer. Both false-positive and false-negative reports do occur. LAB L7400.2800 . Normal HPV RFLX Comment Result Comment: The HPV DNA reflex criteria were not met with this specimen result therefore, no HPV testing was performed. Performed at: [facility] [address] [id number] Senior Compensation Analyst: Nikole Giraldo MD, Phone: [phone] Performed By: #### L7400.0350 #### [facility] (refer to report for specific site) refer to report for address and phone number PAP I-G HPV HI Collected: 03/27/2018 Status: F Source: [place] RISK 1:30 PM [facility] REPOSITORY Order Comment: CYTOLOGY INFORMATION: - CLINICAL INFORMATION: - DATE LMP/MENOPAUSE: 03-19-18 LMP - COLLECTION VIAL: Thin Prep Vial - SKETCH ARTIST SOURCE: CERVICAL/ENDOCERVICAL - COLLECTION TECHNIQUE: BRUSH/SPATULA Specimen Comment: [id number] Specimen Comment: No. of containers..01 ThinPrep Vial TYPE CODE TESTS RESULT OUT OF RANGE REFERENCE UNITS LAB L7400.0800 . Normal DIAGN Comment Result Comment: UNSATISFACTORY FOR EVALUATION. LAB L7400.0900 . Normal ADEQ Comment Result Comment: Specimen processed and examined but unsatisfactory for evaluation of epithelial abnormality because of insufficient cellularity. LAB L7400.1300 . Normal RECOMM Comment Result Comment: Suggest follow up as clinically appropriate. LAB L7400.1400 . Normal PERFORM Comment Result Comment: Zaki Ayala Lgsw ([facility]) LAB L7400.1500 . Normal QC Comment REV Result Comment: Nicole Palomino, Supervisory Lgsw ([facility]) LAB L7400.5814 . Normal Test not TEST METHOD performed Result Comment: The Thin Prep(R) Master Sonar Technician was unable to read this specimen. Therefore a manual review was performed. LAB L7400.2600 . Normal . COMM LAB L7400.2700 . Normal PAPSMR Comment Result Comment: The Pap smear is a screening test designed to aid in the detection of premalignant and malignant conditions of the uterine cervix. It is not a diagnostic procedure and should not be used as the sole means of detecting cervical cancer. Both false-positive and false-negative reports do occur. LAB L7400.2950 Negative Normal HPV Negative HC,HGH RISK Result Comment: This high-risk HPV test detects thirteen high-risk types (16/18/31/33/35/39/45/51/52/56/58/59/68) without differentiation. Performed at: - [facility] [id number] Senior Compensation Analyst: Nikole Giraldo MD, Phone: [phone] Performed at: =[facility] [id number] Senior Compensation Analyst: Nikole Giraldo MD, Phone: [phone] Performed By: #### L7400.0375 #### [facility] (refer to report for specific site) refer to report for address and phone number ALLERGIES ALLERGIES DATE TYPE / CODE NAME / CODE REACTION SEVERITY SOURCE 07/25/2018 Drug No Known Unknown [place] Allergy/122204308(S Allergies/F0019 [facility] [place]) [address](RXNORM) Hospital Repository Miscellaneous NO KNOWN [place] Allergy/812869243(S ALLERGIES [facility] NOM[facility] Hospital Repository Drug NO KNOWN [place] Class/087886248(SNO ALLERGIES Clinic Other MED CT) [place] Repository ENCOUNTERS ENCOUNTERS ADMIT/DISCHARGE ACCOUNT ADMITTING ENCOUNTER LOCATION SOURCE NUMBER CLASS 10/30/2018/10/30/20 [id number] Ambulatory Building:[address] Repository 10/26/2018/10/26/20 [id number] Emergency [address] Other [place] Repository 10/21/2018 [id number] Ambulatory [facility] ing:WOBLAB Repository 09/13/2018/09/13/20 [id number] Emergency [address] Other [place] Repository 08/23/2018/08/23/20 [id number] Emergency [address] ing:ED Repository 07/29/2018/07/29/20 [id number] Ambulatory [address] ing:SDC Repository 06/26/2018 [id number] Ambulatory [facility] ing:WOBLAB Repository 06/17/2018 [id number] Ambulatory [facility] ing:[place] Repository 06/12/2018 [id number] Ambulatory [facility] ing:LABSPEC Repository 03/27/2018 [id number] Ambulatory [facility] ing:[place] Repository PAYERS PAYERS ENCOUNTER GUARANTOR PAYER SUBSCRIBER SOURCE 10/30/2018 NATANAEL REDDB: Primary NATANAEL TRAMAINEB: [place] [facility] Insurance:[facility] [id number] [place] [address] Number: [facility] Repository [address] [place] [address] [id number] [place] [address]Gig: Date: [place] [address] () 10/21/2018 NATANAEL Sawyer Primary NATANAEL C [place] [id number] TR [facility]: [address] Number: [id number] [facility] [address]Gxi: [id number] Repository Date:2018-10-21P O () [address]ATTN: [place] [address]WB: 10/21/2018 Secondary NOT GIVENUNK [place] Insurance:SELF PAY [facility] Number: Effective Repository Date:2018-10-21 08/23/2018 NATANAEL Sawyer Primary NATANAEL C [place] [id number] TR Insurance:[facility]ITAL[facility]SHALLB: [address] Number: [id number] Hospital [place] [address]Hvt: [id number] Repository Date:2018-08-23P O (HP) [address]ATTN: [place] [address]PP: 08/23/2018 Secondary NOT GIVENUNK [place] Insurance:SELF PAY [facility] Number: Effective Repository Date:2018-08-23 07/29/2018 Natanael C Primary Natanael C [place] [id number] TR Insurance:CARESOURCEP [facility] Camp[facility]: [address] Number: [id number] Hospital [place] [address]Vdb: [id number] Repository Date:2018-07-24P O () [address]ATTN: [place] [address]XN: 07/29/2018 Secondary NOT GIVENUNK [place] Insurance:SELF PAY [facility] Number: Effective Repository Date:2018-07-24 06/26/2018 Natanael C Primary Natanael C [place] [id number] Insurance:CARESOURCEP BarkerDOB: [facility] Number: [id number], [id number] Repository [place] [address]Kvj: Date:2018-06-26P [address]ATTN: CLAIMS (HP) [place] [address]HV: 06/26/2018 Secondary NOT GIVENUNK [place] Insurance:SELF PAY [facility] Number: Effective Repository Date:2018-06-26 06/17/2018 Natanael C Primary Natanael C [place] [id number] Insurance:CARESOURCEP BarkerDOB: [facility] Number: [id number], [id number] Repository [place] [address]Rhx: Date:2018-06-17P [address]ATTN: CLAIMS (HP) [place] [address]VZ: 06/17/2018 Secondary NOT GIVENUNK [place] Insurance:SELF PAY [facility] Number: Effective Repository Date:2018-06-17 06/12/2018 Natanael Sawyer Primary Natanael Dnoaldson [id number] Insurance:CARESOURCEP BarkerDOB: [facility] Number: [id number], [id number] Repository [place] [address]Oej: Date:2018-06-12P [address]ATTN: CLAIMS () [place] [address]FC: 06/12/2018 Secondary NOT GIVENUNK [place] Insurance:SELF PAY [facility] Number: Effective Repository Date:2018-06-12 03/27/2018 Natanael Sawyer Primary Natanael Donaldson [id number] Insurance:[facility]OURCEP [facility] Number: [id number], [id number] Repository [place] [address]Zkv: Date:2018-03-27P [address]ATTN: CLAIMS () [place] [address]LR: 03/27/2018 Secondary NOT GIVENUNK [place] Insurance:SELF PAY [facility] Number: Effective Repository Date:2018-03-27
== END ==
PROVIDERS: Visit Provider Obstetrics & Gynecology
DX: O03.9 Complete or unspecified spontaneous abortion without complication (principal)
CPT/HCPCS: 36415; 81241; 85245; 86038

== ENCOUNTER → 2020-01-20 13:43 | Outpatient (CLI) | payer SELFPAY ==
[2020-01-20 16:17] LABS: hCG Titer Quant., Serum 8067 mIU/mL (1-3)
[2020-01-20 17:28] LABS: Chlamydia Trachomatis by PCR Negative (Negative); Neisserai gonorrhoeae by PCR Negative (Negative); Probe Check PASS; Sample Adequacy Control PASS; Specimen Processing Control PASS
[2020-01-25 12:29] LABS: HPV Reflexed? NOT INDICATED
== END ==
LOC: LABSPEC 13:46
PROVIDERS: Visit Provider Obstetrics & Gynecology
DX: Z12.4 Encounter for screening for malignant neoplasm of cervix (principal); Z11.3 Encounter for screening for infections with a predominantly sexual mode of transmission; N91.2 Amenorrhea, unspecified
CPT/HCPCS: 84702; 87491; 87591; 88175; G0145

== ENCOUNTER → 2020-03-24 17:25 | Outpatient (CLI) | payer SELFPAY ==
[2020-03-24 17:52] LABS: Absolute Lymphocyte Count 1.96 X10^3/uL (0.83-4.51); Basophil# 0.06 X10^3/uL; Basophil% 0.6 % (0-1); Eosinophil# 0.21 X10^3/uL; Eosinophils% 2.1 % (0-5); Hemoglobin 13.1 g/dL (12.0-15.0); Lymphocyte # 1.96 X10^3/ul (4.0); Lymphocyte % 19.7 % (19-41); Mean Corp Hgb Conc 32.8 g/dL (32-36); Mean Corpuscular Hgb 28.7 pg (27.0-32.0); Mean Corpuscular Volume 87.5 fL (81-99); Mean Platelet Vol. 10.3 fl (6.2-12.0); Monocyte# 0.61 X10^3/uL; Monocyte% 6.1 % (0-10); NRBC Flagged by Analyzer 0 % (0-5); Neutrophil # 7.02 X10^3/uL (2.7-7.7); Neutrophil % 70.8 % (47-70); Platelet Count 391 K/mm3 (150-450); RBC Distribution Width CV 14.2 % (11.6-14.6); RBC Distribution Width SD 45.3 fl (35.1-43.9); Red Blood Count 4.57 M/mm3 (4.2-5.4); White Blood Count 9.9 K/mm3 (4.4-11.0)
[2020-03-24 17:54] LABS: Color, Urine Yellow (Yellow); Glucose, Dipstick Normal (Normal); Ketone-Dipstick Negative (Negative); Leukocyte Esterase-Dipstick Negative /ul (Negative); Nitrite-Dipstick Negative (Negative); Occult Blood-Urine Negative /ul (Negative); Protein-Dipstick Negative (Negative); Specific Gravity, Urine 1.015 (1.002-1.030); Urine Bilirubin Dipstick Negative (Negative); Urine Clarity Sl. Cloudy (Clear); Urine Urobilinogen Normal (Normal)
[2020-03-24 18:07] LABS: Thyroid Stim Hormone (TSH) 0.42 uIU/mL (0.358-3.74)
[2020-03-24 19:00] LABS: COTININE Drug Screen Positive (<200 ng/mL)
[2020-03-24 19:02] LABS: Amphetamine Urine VISTA POSITIVE (<1000 ng/mL); Barbiturate Urine VISTA NEGATIVE (< 200 ng/mL); Benzodiazepine Urine VISTA NEGATIVE (< 200 ng/mL); Cocaine Urine VISTA NEGATIVE (< 300 ng/mL); Ecstacy Urine VISTA NEGATIVE (< 500 ng/mL); Methadone Urine VISTA NEGATIVE (< 300 ng/mL); PCP Urine VISTA NEGATIVE (< 25 ng/mL); THC Urine VISTA NEGATIVE (< 50 ng/mL); Vista UDS pH Range 6
[2020-03-25 08:49] LABS: HIV - WCH Non-Reactive (Nonreactive); Hepatitis B Surface Antigen Non-Reactive (Nonreactive); Hepatitis C Antibody Non-Reactive (Nonreactive); Progesterone Level 49.17 ng/mL (See Comment); Rubella IgG 120.4 IU/mL
[2020-03-31 08:05] LABS: Prenatal RPR NONREACTIVE (NONREACTIVE)
== END ==
PROVIDERS: Referring Provider Obstetrics & Gynecology; Visit Provider Obstetrics & Gynecology
DX: Z34.81 Encounter for supervision of other normal pregnancy, first trimester (principal)
CPT/HCPCS: 80307; 81002; 84144; 84443; 85025; 86703; 86762; 86803; 86870; 87340

== ENCOUNTER → 2020-06-30 13:05 | Outpatient (CLI) | payer SELFPAY ==
[2020-06-30 13:56] LABS: Hematocrit 33.4 % (37-47); Hemoglobin 10.5 g/dL (12.0-15.0); Mean Corp Hgb Conc 31.4 g/dL (32-36); Mean Corpuscular Hgb 27.3 pg (27.0-32.0); Mean Corpuscular Volume 86.8 fL (81-99); Mean Platelet Vol. 10.4 fl (6.2-12.0); Platelet Count 338 K/mm3 (150-450); RBC Distribution Width CV 13.6 % (11.6-14.6); RBC Distribution Width SD 43.1 fl (35.1-43.9); Red Blood Count 3.85 M/mm3 (4.2-5.4); White Blood Count 14.5 K/mm3 (4.4-11.0)
[2020-06-30 14:06] LABS: Glucose Challenge Gest 1H 50g 160 mg/dL (70-140)
== END ==
PROVIDERS: Visit Provider Obstetrics & Gynecology
DX: Z34.83 Encounter for supervision of other normal pregnancy, third trimester (principal)
CPT/HCPCS: 36415; 82950; 85027; 86850

== ENCOUNTER → 2020-07-11 10:06 | Outpatient (CLI) | payer MEDICAID, SELFPAY ==
[2020-07-11 10:54] LABS: Glucose GTT-Gestation. Fasting 93 mg/dL (<105)
[2020-07-11 11:53] LABS: Glucose GTT-Gestational 1 Hr 192 mg/dL (<190)
== END ==
PROVIDERS: Obstetrics & Gynecology; Referring Provider Obstetrics & Gynecology; Visit Provider Obstetrics & Gynecology
DX: O24.912 Unspecified diabetes mellitus in pregnancy, second trimester (principal); Z3A.00 Weeks of gestation of pregnancy not specified
CPT/HCPCS: 36415; 82951; 82952

== ENCOUNTER 2020-08-01 13:15 | Outpatient (CLI) | payer MEDICAID, SELFPAY ==
[2020-08-01 13:22] VITALS: BMI 29.9
[2020-08-01 13:33] VITALS: BP 132/93; PULSE 116; TEMP 36.6
[2020-08-01 13:43] VITALS: BP 123/83; PULSE 111
[2020-08-01 13:53] VITALS: BP 131/91; PULSE 109
[2020-08-01 14:03] VITALS: BP 137/93; PULSE 105
[2020-08-01 14:14] VITALS: BP 133/89; PULSE 106
--- NOTE | 2020-08-25 02:06 | OB.TRI.NOTE ---
- Problem List (1) 32 weeks gestation of Status: Acute (2) Advanced maternal age (AMA) in Status: Acute History of Present Illness Date of Service: 08/01/20 Was patient seen by the physician?: No Reason For Visit: NST Date of Service: 08/01/20 Final LELE: 09/23/20 Final LELE Source: US <20 weeks Gestational age: 32 Weeks and 3 Days History of Present Illness: 39yo @ 32 3/7wga presenting for NST for AMA. Allergies No Known Allergies Allergy (Verified 07/25/18 09:21) Physical Exam Vitals: Vital Signs Temp Pulse BP 97.9 F 106 H 133/89 H 08/01/20 13:33 08/01/20 14:14 08/01/20 14:14 NST - FHR Rate Baby A Baseline: 140 Variability:: Moderate Accelerations:: 15 x 15 Decelerations:: None NST Reactive:: Yes FHR Category:: Category I Uterine Activity:: irritability Impression/Plan Reactive NST d/c home
== END 2020-08-01 14:45 | disposition home or self-care (01) ==
LOC: WPOUT 13:17 → OBT 13:18
PROVIDERS: Visit Provider Obstetrics & Gynecology
DX: O09.523 Supervision of elderly multigravida, third trimester (principal); Z3A.32 32 weeks gestation of pregnancy
CPT/HCPCS: 59025; 59050; 99218; G0378

== ENCOUNTER → 2020-08-29 16:01 | Outpatient (CLI) | payer MEDICAID, SELFPAY ==
[2020-08-01 13:22] VITALS: BMI 29.9
== END ==
PROVIDERS: Visit Provider Obstetrics & Gynecology
DX: Z36.85 Encounter for antenatal screening for Streptococcus B (principal)
CPT/HCPCS: 87081

== ENCOUNTER 2020-09-06 16:59 | Inpatient (IN) | payer MEDICAID, SELFPAY ==
[2020-09-06 16:14] VITALS: BMI 30.3
[2020-09-06 16:44] VITALS: BP 138/88; PULSE 100; PULSE 102; TEMP 37.2; O2SAT 98
[2020-09-06 16:57] LABS: ROM Internal Control Test YES-OK TO RESULT pt. (Internal QC); ROM Patient Test POSITIVE (Negative)
[2020-09-06] MEDS: Lactated Ringers 1,000 ML 50 ML IV (17:40)
--- NOTE | 2020-09-06 17:54 | HP.PCM_ITS ---
- Problem List (1) 37 weeks gestation of Status: Acute (2) Gestational diabetes mellitus (GDM) Status: Acute Qualifiers: Gestational diabetes mellitus control: oral hypoglycemic-controlled Trimester: third trimester Qualified Code(s): O24.415 - Gestational diabetes mellitus in , controlled by oral hypoglycemic drugs (3) Gestational hypertension Status: Acute Qualifiers: Trimester: third trimester Qualified Code(s): O13.3 - Gestational [-induced] hypertension without significant proteinuria, third trimester (4) Tobacco smoking affecting Status: Acute Qualifiers: Trimester: third trimester Qualified Code(s): O99.333 - Smoking (tobacco) complicating , third trimester (5) Advanced maternal age (AMA) in Status: Acute History Date of Admission: 09/06/20 Final LELE: 09/23/20 Final LELE Source: US <20 weeks Gestational age: 37 Weeks and 4 Days History of this : This is a 40 year-old, G [5], P [0], at 37.4 weeks gestational age. SROM at approximately 1500 today, clear fluid. complicated by AMA, nicotine use, depression/anxiety, GDM and GHTN. At times refuses to take GDM and HTN medication. Has a history of 4 previous losses. Would like epidural for pain management. Allergies No Known Allergies Allergy (Verified 09/06/20 16:15) Home Medications: Home Medications Glyburid-Metformin 1.25-250 mg 09/06/20 Prenatabs FA 09/06/20 Smoking Status: Current every day smoker Alcohol: None Substance Use Type: Amphetamines Number of Fetus(es): 1 NST - FHR Rate Baby A Baseline: 150 Accelerations:: None Decelerations:: None NST Reactive:: Non-Reactive FHR Category:: Category II Uterine Activity:: Q10m, irregular History Past Pregnancies: Past Pregnancies: PRIOR DELIVERY HISTORY DEL DATE GEST LAB WT LB WT OZ TYPE ANES LABOR TX 15 Nov 14 6 0 0 0 Sab None No 15 Apr 19 6 0 0 0 Sab None No Apr 15 6 0 0 0 Sab General No Labs: Mom's Problem List Problem Status Onset Code Advanced maternal age (AMA) in Acute 37 weeks gestation of Acute Z3A.37 Gestational diabetes mellitus (GDM) Acute O24.419 Gestational hypertension Acute O13.9 Tobacco smoking affecting Acute O99.330 Mom's Labs & Results 09/06/20 09/06/20 09/06/20 16:25 17:40 17:40 WBC 10.4 RBC 4.68 Hgb 10.7 L Hct 36.2 L MCV 77.4 L MCH 22.9 L MCHC 29.6 L RDW Std Deviation 45.4 H RDW Coeff of Richard 16.3 H Plt Count 326 MPV 10.6 Immature Gran % (Auto) 3.800 H Neut % (Auto) 67.7 Lymph % (Auto) 19.3 [place] % (Auto) 7.2 Eos % (Auto) 1.2 Baso % (Auto) 0.8 Absolute Neuts (auto) 7.0 Absolute Lymphs (auto) 2.01 Nucleated RBC % 0.4 Vag Amniotic Fld Detect POSITIVE H Blood Type Pending Antibody Screen Pending Course Did the patient receive Yes care? Labs Blood Type: O RH: NEGATIVE RPR/VDRL/Syphilis Nonreactive Rubella status Immune HbSAg Negative Date Done: 03/24/20 Chlamydia Negative Gonorrhea Negative HIV/AIDS Non-Reactive Group B Strep: Negative Current Obstetrical History Gestational Diabetes Yes Incompetent Cervix No Infertility No IUGR No Macrosomia No Hypertension/Pre-eclampsia Yes Placenta Previa/Abruption No PTL/PROM No Uterine anomaly No Oligohydramnios No Polyhydramnios No Multiple gestation No Past Medical History Asthma No Diabetes No Hypertension No Heart disease No Mitral valve prolapse No Neurologic/Seizure disorder/ No Migraines Kidney disease No Liver disease No Varicosities No Clotting disorders/Hx of DVT No Thyroid Dysfunction No Other medical diseases No Psychiatric disorders No Major trauma No Abnormal PAP smear No Sleep apnea No Mammogram in the last 2 years No Social History Marital Status: Alleged father Nathan Gunter Smoking Yes: X [id number] Smoking Status Former smoker Substance Use Type Amphetamines Expected Infant Delivery Method: Spontaneous Vaginal Number of Visits: 14 Review of Systems Constitutional: Denies: Chills, Fever, Weight Change HEENT: Denies: Head Aches, Sinus Congestion, Sinus Drainage Cardiovascular: Denies: Chest Pain, Palpitations Respiratory: Denies: Cough, Shortness of breath at rest, Sputum production Gastrointestinal: Denies: Abdominal Pain, Nausea, Vomiting Genitourinary: Denies: Dysuria Musculoskeletal: Denies: Joint Pain, Joint Tenderness Skin: Denies: Rash, Wounds Neurological: Denies: Numbness, Tingling, Focal weakness Psychiatric: Denies: Anxiety, Depression, Homicidal Ideations, Suicidal Ideations Hematologic/ Lymphatic: Denies: Easy Bruising, Easy Bleeding Physical Exam Vitals: Vital Signs Temp Pulse BP Pulse Ox 99.0 F 102 H 138/88 H 98 09/06/20 16:44 09/06/20 16:44 09/06/20 16:44 09/06/20 16:44 General: Alert, Oriented x3, No apparent distress HEENT: Atraumatic, Normocephalic. Negative for: Thyromegaly, Lymphadenopathy Cardiovascular: Regular rate, Regular Rhythm Lungs: Clear to auscultation Abdomen: Bowel Sounds Present, Gravid Neurological: Deep Tendon Reflexes 2+/4 and Symmetrical, Neuro grossly intact [employer]: Normal external genitalia. Negative for: Vulvar lesions Estimated gestational size: Appropriate for gestational size Presentation: Cephalic Cervix Dilation (cm): 1 Station: -3 Effacement (%): 10 Assessment/Plan All Active Problems Missed with demise before 20 completed weeks of gestation (Acute) 32 weeks gestation of (Acute) Advanced maternal age (AMA) in (Acute) 37 weeks gestation of (Acute) Gestational diabetes mellitus (GDM) (Acute) Gestational hypertension (Acute) Tobacco smoking affecting (Acute) A/P: This is a 40 year-old, G [5], P [0], at 37.4 weeks gestational age Gestational diabetes, oral medication controlled Gestational hypertension, oral medication controlled Advanced maternal age Nicotine use throughout SROM, clear amniotic fluid around 1500 SVE 12/04/high UC Q10m, irregular FHR baseline 140, -accels, -decels, moderate variability, Category II. Continuous monitoring Plans epidural for pain management Discussed POC with attending Dr. Churchill, will allow to labor for 4 hours. If not in active labor, will augment with Pitocin Recheck SVE in 4 hours
[2020-09-06 17:57] LABS: Absolute Lymphocyte Count 2.01 X10^3/uL (0.83-4.51); Basophil# 0.08 X10^3/uL; Basophil% 0.8 % (0-1); Eosinophil# 0.12 X10^3/uL; Eosinophils% 1.2 % (0-5); Hematocrit 36.2 % (37-47); Hemoglobin 10.7 g/dL (12.0-15.0); Lymphocyte # 2.01 X10^3/ul (4.0); Lymphocyte % 19.3 % (19-41); Mean Corp Hgb Conc 29.6 g/dL (32-36); Mean Corpuscular Hgb 22.9 pg (27.0-32.0); Mean Corpuscular Volume 77.4 fL (81-99); Mean Platelet Vol. 10.6 fl (6.2-12.0); Monocyte# 0.75 X10^3/uL; Monocyte% 7.2 % (0-10); NRBC Flagged by Analyzer 0.4 % (0-5); Neutrophil # 7.04 X10^3/uL (2.7-7.7); Neutrophil % 67.7 % (47-70); Platelet Count 326 K/mm3 (150-450); RBC Distribution Width CV 16.3 % (11.6-14.6); RBC Distribution Width SD 45.4 fl (35.1-43.9); Red Blood Count 4.68 M/mm3 (4.2-5.4); White Blood Count 10.4 K/mm3 (4.4-11.0)
[2020-09-06 19:32] VITALS: BP 146/91; PULSE 103; TEMP 37.2
[2020-09-06 19:36] LABS: Bedside Glucose 122 mg/dL (70-110)
[2020-09-06 20:14] VITALS: BP 139/89; PULSE 100
[2020-09-06] MEDS: glyBURIDE 2.5 MG Tablet 1.25 MG PO (20:17)
[2020-09-06 20:31] LABS: Bedside Glucose 131 mg/dL (70-110)
[2020-09-06 21:27] VITALS: BP 141/92; PULSE 98
[2020-09-06] MEDS: Labetalol 100 MG Tablet PO (21:27)
[2020-09-06 21:41] LABS: Bedside Glucose 164 mg/dL (70-110)
[2020-09-06] MEDS: Oxytocin 30 units/NS 500 ml 30 UNITS/500 ML IV.SOLN IV (22:41)
[2020-09-06] MEDS: Zolpidem Tartrate 5 MG Tablet PO (22:41)
[2020-09-06 22:42] VITALS: BP 143/96; PULSE 88; TEMP 36.7
[2020-09-06 22:50] LABS: Bedside Glucose 92 mg/dL (70-110)
[2020-09-06 23:43] VITALS: BP 141/89; PULSE 91
[2020-09-07] VITALS (48 sets, daily range): BP systolic 112–182; BP diastolic 66–115; PULSE 9–196; TEMP 36.4–37.1; O2SAT 82–100
[2020-09-07 00:01] LABS: Bedside Glucose 128 mg/dL (70-110)
[2020-09-07 01:01] LABS: Bedside Glucose 167 mg/dL (70-110)
[2020-09-07 02:06] LABS: Bedside Glucose 114 mg/dL (70-110)
[2020-09-07] MEDS: Lactated Ringers 500 ML 999 ML IV ×3 (03:01→17:18)
[2020-09-07 03:15] LABS: Bedside Glucose 121 mg/dL (70-110)
--- NOTE | 2020-09-07 03:30 | PN.OBGYN_ITS ---
Patient Problems: Active and Suspected Problems Advanced maternal age (AMA) in (Acute) 37 weeks gestation of (Acute) Gestational diabetes mellitus (GDM) (Acute) Gestational hypertension (Acute) Tobacco smoking affecting (Acute) Subjective: Rating contraction pain a 4/10 and declining pain medication at this time. States there is nothing anyone can do to help this labor and not happy about the baby. Objective: VSS. Blood sugar elevated after provided her with a candy bar, cheeseburger and jello. Advised clear liquids, sugar free. FHR baseline 135, +accels, -decels, moderate variability. - Physical Exam Vitals/I&O's: Vital Signs Temp Pulse BP Pulse Ox 97.8 F 87 138/85 H 99 09/07/20 04:14 09/07/20 07:31 09/07/20 07:31 09/07/20 06:19 Weight: 80.1 kg Body Mass Index (BMI) 30.3 Intake and Output for Last 24 Hours 09/05/20 09/06/20 09/07/20 23:59 23:59 23:59 Intake Total 1539.54 / 1539.54 Balance 1539.54 / 1539.54 General: Alert, Oriented x3, Cooperative HEENT: Atraumatic, PERRLA, EOMI, Normocephalic Neck: Supple, No JVD, Negative Carotid Bruits Lungs: Clear to auscultation, Normal air movement Cardiovascular: Regular rate, No murmurs Abdomen: Bowel Sounds Present, Soft, Non Tender Extremities: No edema, Capillary Refill Less than 3 Seconds Skin: No rashes, No breakdown Musculoskeletal: No Tenderness to Palpation of Joints or Extremities Neurological: Cranial nerves II-XII grossly intact Psych/Mental Status: Normal Affect, Appropriate Laboratory Results 09/06/20 16:25: Vag Amniotic Fld Detect POSITIVE H 09/06/20 17:40: WBC 10.4, RBC 4.68, Hgb 10.7 L, Hct 36.2 L, MCV 77.4 L, MCH 22.9 L, MCHC 29.6 L, RDW Std Deviation 45.4 H, RDW Coeff of Richard 16.3 H, Plt Count 326, MPV 10.6, Immature Gran % (Auto) 3.800 H, Neut % (Auto) 67.7, Lymph % (Auto) 19.3, [place] % (Auto) 7.2, Eos % (Auto) 1.2, Baso % (Auto) 0.8, Absolute Neuts (auto) 7.0, Absolute Lymphs (auto) 2.01, Nucleated RBC % 0.4 09/06/20 17:40: Blood Type O NEGATIVE, Antibody Screen NEGATIVE 09/06/20 19:25: POC Glucose 122 H 09/06/20 20:16: POC Glucose 131 H 09/06/20 21:25: POC Glucose 164 H 09/06/20 22:40: POC Glucose 92 09/06/20 23:44: POC Glucose 128 H 09/07/20 00:53: POC Glucose 167 H 09/07/20 01:55: POC Glucose 114 H 09/07/20 02:57: POC Glucose 121 H 09/07/20 03:42: POC Glucose 105 09/07/20 04:34: POC Glucose 103 Current Medications Acetaminophen (Acetaminophen 325 Mg Tablet) 325 - 650 mg PO Q4H PRN PRN PRN Reason: Pain Score 1-3 Al Hydroxide/Mg Hydroxide (Mag Hydrox/Al Hydrox/Simeth 30 Ml Udc) 15 - 30 ml PO Q4H PRN PRN PRN Reason: INDIGESTION Citric Acid/Sodium Citrate (Sodium Citrate/Citric Acid 30 Ml Udc) 30 ml PO X1 P RN PRN Reason: Section Dextrose (Dextrose 50%-Water 25 Gm/50 Ml Disp.Syrin) 0 gm IV X1 PRN; Protocol PRN Reason: Hypoglycemia Dextrose (Dextrose 50%-Water 25 Gm/50 Ml Disp.Syrin) 0 gm IV X1 PRN; Protocol PRN Reason: Hypoglycemia Ephedrine Sulfate (Ephedrine Sulfate 50 Mg/Ml Ampul) 10 mg IV Q10M PRN PRN Reason: hypotension Ephedrine Sulfate (Ephedrine Sulfate 50 Mg/Ml Ampul) 10 mg IM Q30M PRN PRN Reason: hypotension Fentanyl Citrate (Fentanyl 100 Mcg/2 Ml Ampul) 25 - 50 mcg IV Q2H PRN PRN PRN Reason: Pain Score 4-10 Fentanyl/Bupivacaine/Sodium Chlor (Fentanyl-Bupivacaine (Epidural) 100 Ml Bag) 0 ml EPIDURAL UD CARLYN; Protocol Last Admin: 09/07/20 04:18 Dose: 100 ml Documented by: Glucagon (Glucagon 1 Mg/Ml Syringe) 1 mg IM .X1 PRN PRN Reason: Hypoglycemia Glucagon (Glucagon 1 Mg/Ml Syringe) 1 mg IM .X1 PRN PRN Reason: Hypoglycemia Glyburide (Glyburide 2.5 Mg Tablet) 1.25 mg PO DINNER [facility] Last Admin: 09/06/20 20:17 Dose: 1.25 mg Documented by: Lactated Ringer's () 500 mls @ 999 mls/hr IV .Q31M PRN PRN Reason: Epidural Last Infusion: 09/07/20 03:32 Dose: Infused Documented by: Lactated Ringer's () 500 mls @ 999 mls/hr IV .Q31M PRN PRN Reason: Corrective Measures Lactated Ringer's () 1,000 mls @ 50 mls/hr IV .Q20H [facility] Last Admin: 09/07/20 06:26 Dose: 200 mls/hr Documented by: Oxytocin/Sodium Chloride () 30 units in 500 mls @ 2 mls/hr IV .Q250H [facility] Last Infusion: 09/07/20 06:11 Dose: 10 mls/hr Documented by: Lactated Ringer's () 1,000 mls @ 15 mls/hr IV .Q48H [facility] Last Admin: 09/07/20 06:59 Dose: Not Given Documented by: Dextrose/Sodium Chloride () 1,000 mls @ 125 mls/hr IV .Q8H [facility] Last Admin: 09/07/20 06:59 Dose: Not Given Documented by: Insulin Human Lispro 100 unit/ (Sodium Chloride) 100 mls @ 0 mls/hr IV .Q0M S ; Protocol Labetalol HCl (Labetalol 100 Mg Tablet) 100 mg PO BID [facility] Last Admin: 09/06/20 21:27 Dose: 100 mg Documented by: Nalbuphine HCl (Nalbuphine 10 Mg/Ml Ampul) 5 mg IV Q3H PRN PRN PRN Reason: ITCHING Naloxone HCl (Naloxone 0.4 Mg/Ml Syringe) 0.02 mg IV Q1M PRN PRN Reason: RR< 10 AND PT UNRESPONSIVE Nicotine (Nicotine 14 Mg Patch) 14 mg TRANSDERM. DAILY [facility] Last Admin: 09/06/20 23:47 Dose: 14 mg Documented by: Ondansetron HCl (Ondansetron 4 Mg/2 Ml Vial) 4 mg IV Q4H PRN PRN PRN Reason: NAUSEA Prochlorperazine Edisylate (Prochlorperazine 10 Mg/2 Ml Vial) 10 mg IV Q6H PRN PRN PRN Reason: NAUSEA Sodium Chloride (0.9% Saline Lock 10 Ml Syringe) 10 - 40 ml IV X1 PRN PRN Reason: SALINE FLUSH Medical Necessity - Tobacco Use Smoking Status: Former smoker Assessment/Plan All Active Problems Missed with demise before 20 completed weeks of gestation (Acute) 32 weeks gestation of (Acute) Advanced maternal age (AMA) in (Acute) 37 weeks gestation of (Acute) Gestational diabetes mellitus (GDM) (Acute) Gestational hypertension (Acute) Tobacco smoking affecting (Acute) A/P: SROM at around 1300 yesterday, clear fluid Category I NST Pitocin at 6u UC Q1-4m SVE per RN /-3 Advised of epidural as option for pain management Social work consult placed Will start insulin drip per protocol if having 1 more elevated BS after watching diet BS currently 114 BP130/[address] for
[2020-09-07] MEDS: fentaNYL-bupivacaine (epidural) 100 ML BAG EPIDURAL ×4 (04:18→18:30)
[2020-09-07 04:51] LABS: Bedside Glucose 105 mg/dL (70-110)
[2020-09-07 04:51] LABS: Bedside Glucose 103 mg/dL (70-110)
[2020-09-07] MEDS: Lactated Ringers 1,000 ML 200 ML IV ×4 (06:26→22:20)
--- NOTE | 2020-09-07 07:53 | PN.OBGYN_ITS ---
Patient Problems: Active and Suspected Problems Advanced maternal age (AMA) in (Acute) 37 weeks gestation of (Acute) Gestational diabetes mellitus (GDM) (Acute) Gestational hypertension (Acute) Tobacco smoking affecting (Acute) Subjective: Currently sleeping soundly in bed with epidural. Objective: VSS. Blood pressure and blood sugars have stayed stable overnight. SVE 1/75/-2 very posterior. FHR baseline 130, -accels, -decels, minimal to moderate variability at times, Category II. - Physical Exam Vitals/I&O's: Vital Signs Temp Pulse BP Pulse Ox 97.8 F 87 138/85 H 99 09/07/20 04:14 09/07/20 07:31 09/07/20 07:31 09/07/20 06:19 Weight: 80.1 kg Body Mass Index (BMI) 30.3 Intake and Output for Last 24 Hours 09/05/20 09/06/20 09/07/20 23:59 23:59 23:59 Intake Total 1539.54 / 1539.54 Balance 1539.54 / 1539.54 General: Alert, Oriented x3, Cooperative HEENT: Atraumatic, PERRLA, EOMI, Normocephalic Neck: Supple, No JVD, Negative Carotid Bruits Lungs: Clear to auscultation, Normal air movement Cardiovascular: Regular rate, No murmurs Abdomen: Bowel Sounds Present, Soft, Non Tender Extremities: No edema, Capillary Refill Less than 3 Seconds Skin: No rashes, No breakdown Musculoskeletal: No Tenderness to Palpation of Joints or Extremities Neurological: Cranial nerves II-XII grossly intact Psych/Mental Status: Normal Affect, Appropriate Laboratory Results 09/06/20 16:25: Vag Amniotic Fld Detect POSITIVE H 09/06/20 17:40: WBC 10.4, RBC 4.68, Hgb 10.7 L, Hct 36.2 L, MCV 77.4 L, MCH 22.9 L, MCHC 29.6 L, RDW Std Deviation 45.4 H, RDW Coeff of Richard 16.3 H, Plt Count 326, MPV 10.6, Immature Gran % (Auto) 3.800 H, Neut % (Auto) 67.7, Lymph % (Auto) 19.3, [place] % (Auto) 7.2, Eos % (Auto) 1.2, Baso % (Auto) 0.8, Absolute Neuts (auto) 7.0, Absolute Lymphs (auto) 2.01, Nucleated RBC % 0.4 09/06/20 17:40: Blood Type O NEGATIVE, Antibody Screen NEGATIVE 09/06/20 19:25: POC Glucose 122 H 09/06/20 20:16: POC Glucose 131 H 09/06/20 21:25: POC Glucose 164 H 09/06/20 22:40: POC Glucose 92 09/06/20 23:44: POC Glucose 128 H 09/07/20 00:53: POC Glucose 167 H 09/07/20 01:55: POC Glucose 114 H 09/07/20 02:57: POC Glucose 121 H 09/07/20 03:42: POC Glucose 105 09/07/20 04:34: POC Glucose 103 Current Medications Acetaminophen (Acetaminophen 325 Mg Tablet) 325 - 650 mg PO Q4H PRN PRN PRN Reason: Pain Score 1-3 Al Hydroxide/Mg Hydroxide (Mag Hydrox/Al Hydrox/Simeth 30 Ml Udc) 15 - 30 ml PO Q4H PRN PRN PRN Reason: INDIGESTION Citric Acid/Sodium Citrate (Sodium Citrate/Citric Acid 30 Ml Udc) 30 ml PO X1 PRN PRN Reason: Section Dextrose (Dextrose 50%-Water 25 Gm/50 Ml Disp.Syrin) 0 gm IV X1 PRN; Protocol PRN Reason: Hypoglycemia Dextrose (Dextrose 50%-Water 25 Gm/50 Ml Disp.Syrin) 0 gm IV X1 PRN; Protocol PRN Reason: Hypoglycemia Ephedrine Sulfate (Ephedrine Sulfate 50 Mg/Ml Ampul) 10 mg IV Q10M PRN PRN Reason: hypotension Ephedrine Sulfate (Ephedrine Sulfate 50 Mg/Ml Ampul) 10 mg IM Q30M PRN PRN Reason: hypotension Fentanyl Citrate (Fentanyl 100 Mcg/2 Ml Ampul) 25 - 50 mcg IV Q2H PRN PRN PRN Reason: Pain Score 4-10 Fentanyl/Bupivacaine/Sodium Chlor (Fentanyl-Bupivacaine (Epidural) 100 Ml Bag) 0 ml EPIDURAL UD CARLYN; Protocol Last Admin: 09/07/20 04:18 Dose: 100 ml Documented by: Glucagon (Glucagon 1 Mg/Ml Syringe) 1 mg IM .X1 PRN PRN Reason: Hypoglycemia Glucagon (Glucagon 1 Mg/Ml Syringe) 1 mg IM .X1 PRN PRN Reason: Hypoglycemia Glyburide (Glyburide 2.5 Mg Tablet) 1.25 mg PO [facility]NER [facility] Last Admin: 09/06/20 20:17 Dose: 1.25 mg Documented by: Lactated Ringer's () 500 mls @ 999 mls/hr IV .Q31M PRN PRN Reason: Epidural Last Infusion: 09/07/20 03:32 Dose: Infused Documented by: Lactated Ringer's () 500 mls @ 999 mls/hr IV .Q31M PRN PRN Reason: Corrective Measures Lactated Ringer's () 1,000 mls @ 50 mls/hr IV .Q20H [facility] Last Admin: 09/07/20 06:26 Dose: 200 mls/hr Documented by: Oxytocin/Sodium Chloride () 30 units in 500 mls @ 2 mls/hr IV .Q250H [facility] Last Infusion: 09/07/20 06:11 Dose: 10 mls/hr Documented by: Lactated Ringer's () 1,000 mls @ 15 mls/hr IV .Q48H [facility] Last Admin: 09/07/20 06:59 Dose: Not Given Documented by: Dextrose/Sodium Chloride () 1,000 mls @ 125 mls/hr IV .Q8H [facility] Last Admin: 09/07/20 06:59 Dose: Not Given Documented by: Insulin Human Lispro 100 unit/ (Sodium Chloride) 100 mls @ 0 mls/hr IV .Q0M [facility]; Protocol Labetalol HCl (Labetalol 100 Mg Tablet) 100 mg PO BID [facility] Last Admin: 09/06/20 21:27 Dose: 100 mg Documented by: Nalbuphine HCl (Nalbuphine 10 Mg/Ml Ampul) 5 mg IV Q3H PRN PRN PRN Reason: ITCHING Naloxone HCl (Naloxone 0.4 Mg/Ml Syringe) 0.02 mg IV Q1M PRN PRN Reason: RR< 10 AND PT UNRESPONSIVE Nicotine (Nicotine 14 Mg Patch) 14 mg TRANSDERM. DAILY [facility] Last Admin: 09/06/20 23:47 Dose: 14 mg Documented by: Ondansetron HCl (Ondansetron 4 Mg/2 Ml Vial) 4 mg IV Q4H PRN PRN PRN Reason: NAUSEA Prochlorperazine Edisylate (Prochlorperazine 10 Mg/2 Ml Vial) 10 mg IV Q6H PRN PRN PRN Reason: NAUSEA Sodium Chloride (0.9% Saline Lock 10 Ml Syringe) 10 - 40 ml IV X1 PRN PRN Reason: SALINE FLUSH Medical Necessity - Tobacco Use Smoking Status: Former smoker Assessment/Plan All Active Problems Missed with demise before 20 completed weeks of gestation (Acute) 32 weeks gestation of (Acute) Advanced maternal age (AMA) in (Acute) 37 weeks gestation of (Acute) Gestational diabetes mellitus (GDM) (Acute) Gestational hypertension (Acute) Tobacco smoking affecting (Acute) A/P: with SROM yesterday, clarified it was 1300 Pitocin at 10u with SVE slightly changed over to /-[address] for effective pain management Blood pressure 138/85 with Labetolol 100mg BID ordered Blood sugars have remained stable with Glyburide after patient went to clear liquids Discussed case with Rhonda RITTER about next cervical exam and to call Will update Dr. Eaton on patient
--- NOTE | 2020-09-07 08:33 | PCM.PN.BLA ---
Progress Note No complaints. AVSS GEN - NAD, somnolent, but nods head to questions FHR 130, moderate variability, + accelerations, no decelerations TOCO 4-5/10 min SVE 3.5/80/-2, soft, midposition A/P: 40yo @ 37 6/7wga with ROM, pitocin induction, Cat I FHR -Prolonged ROM, however GBS neg and no si/sx infection -Continue pitocin as tolerated by mother and fetus. STROKE Vital Signs/Narrative: Vital Signs Temp Pulse BP Pulse Ox 09/07/20 08:31 100 112/78 09/07/20 07:31 87 138/85 H 09/07/20 07:30 97.8 F 100 09/07/20 06:19 99 09/07/20 06:16 119 H 85 09/07/20 06:09 95 122/78 H 09/07/20 05:15 98 135/87 H 09/07/20 04:47 104 H 136/89 H 09/07/20 04:41 103 H 135/90 H
[2020-09-07] MEDS: Ondansetron 4 MG/2 ML Vial IV (09:00)
[2020-09-07 09:31] LABS: Bedside Glucose 83 mg/dL (70-110)
[2020-09-07] MEDS: Labetalol 100 MG Tablet PO ×2 (11:03→22:02)
[2020-09-07 13:30] LABS: Bedside Glucose 111 mg/dL (70-110)
[2020-09-07 13:30] LABS: Bedside Glucose 66 mg/dL (70-110)
[2020-09-07] MEDS: Acetaminophen 325 MG Tablet PO (13:38)
[2020-09-07] MEDS: Amnioinfusion- 0.9% NS 1,000 ML IV.SOLN. 300 ML INTRA-UTER (15:48)
[2020-09-07 15:55] LABS: Bedside Glucose 100 mg/dL (70-110)
[2020-09-07 18:06] LABS: Bedside Glucose 81 mg/dL (70-110)
[2020-09-07 18:06] LABS: Bedside Glucose 82 mg/dL (70-110)
[2020-09-07] MEDS: glyBURIDE 2.5 MG Tablet 1.25 MG PO (18:45)
--- NOTE | 2020-09-07 18:45 | PCM.PN.BLA ---
Progress Note LABOR PROGRESS NOTE Patient comfortable with epidural and is without complaints. AVSS GEN - NAD, AAO x 3 FHR 125, moderate variability, + accelerations - preceding prolonged deceleration reviewed 7 minutes from descent to recovery TOCO 3-4/10 min SVE deferred, recent exam /-1 per RN exam at approx 1815h A/P: 40yo @ 37 6/7 weeks gestation with ROM, on pitocin, hx cHTN, GDM -Blood sugars well controlled today, continue glyburide in labor -BPs normal the mildly elevated, will continue to monitor. No sx preeclampsia -Continue in labor without pitocin at this time given prolonged deceleration. STROKE Vital Signs/Narrative: Vital Signs Temp Pulse BP Pulse Ox 09/07/20 21:57 98.4 F 84 144/87 H 09/07/20 20:58 98.4 F 89 154/92 H 09/07/20 20:57 100 09/07/20 20:00 97.6 F L 88 132/87 H 09/07/20 19:06 94 131/84 H 96
[2020-09-07 19:16] LABS: Bedside Glucose 109 mg/dL (70-110)
[2020-09-07 20:16] LABS: Bedside Glucose 85 mg/dL (70-110)
[2020-09-07 21:16] LABS: Bedside Glucose 69 mg/dL (70-110)
[2020-09-07 21:35] LABS: Bedside Glucose 113 mg/dL (70-110)
[2020-09-07] MEDS: 0.9% Saline Lock 10 ML Syringe IV (22:02)
[2020-09-07 22:25] LABS: Bedside Glucose 111 mg/dL (70-110)
[2020-09-07 23:11] LABS: Bedside Glucose 74 mg/dL (70-110)
[2020-09-08] VITALS (69 sets, daily range): BP systolic 116–143; BP diastolic 66–91; PULSE 74–108; RESP 14–20; TEMP 36.3–37.9; O2SAT 83–100
[2020-09-08] MEDS: fentaNYL-bupivacaine (epidural) 100 ML BAG EPIDURAL ×2 (00:11→04:49)
[2020-09-08 00:46] LABS: Bedside Glucose 103 mg/dL (70-110)
[2020-09-08 00:46] LABS: Bedside Glucose 61 mg/dL (70-110)
[2020-09-08 00:46] LABS: Bedside Glucose 55 mg/dL (70-110)
[2020-09-08 01:00] LABS: Bedside Glucose 71 mg/dL (70-110)
[2020-09-08 02:06] LABS: Bedside Glucose 62 mg/dL (70-110)
[2020-09-08 03:16] LABS: Bedside Glucose 97 mg/dL (70-110)
[2020-09-08] MEDS: Lactated Ringers 500 ML 999 ML IV (03:25)
[2020-09-08] MEDS: Lactated Ringers 1,000 ML 200 ML IV (03:25)
[2020-09-08] MEDS: Propranolol 1 MG/ML Ampul 2 MG IV (03:54)
[2020-09-08] MEDS: Amnioinfusion- 0.9% NS 1,000 ML IV.SOLN. 300 ML INTRA-UTER (04:15)
[2020-09-08 04:16] LABS: Bedside Glucose 71 mg/dL (70-110)
--- NOTE | 2020-09-08 05:23 | PCM.PN.BLA ---
Progress Note LABOR PROGRESS NOTE No complaints. Vital Signs Temp Pulse Resp BP Pulse Ox 09/08/20 05:16 98.1 F 89 20 H 120/72 100 09/08/20 04:53 98.1 F 79 120/72 09/08/20 03:59 98.6 F 89 130/70 H 100 09/08/20 02:54 99.8 F H 92 129/77 H 09/08/20 01:50 100.0 F H 93 129/78 H 09/08/20 00:54 99.6 F H 90 122/77 H 100 09/08/20 00:03 98.7 F 93 131/79 H 09/07/20 23:03 87 140/66 H 09/07/20 23:01 98.4 F 88 99 09/07/20 21:57 98.4 F 84 144/87 H 09/07/20 20:58 98.4 F 89 154/92 H 09/07/20 20:57 100 09/07/20 20:00 97.6 F L 88 132/87 H 09/07/20 19:06 94 131/84 H 96 09/07/20 18:09 88 127/80 H 09/07/20 18:08 98.4 F 98 GEN - NAD, AAO x 3 FHR 130, moderate variability, + accelerations, prolonged deceleration precipitated by pelvic exams SVE 8/80/0 TOCO 3/10 min A/P: 40yo @ 38wga, prolonged ROM, Cat II FHR with arrest of dilation, hx GDM, cHTN -Pitocin discontinued due to recurrence of decelerations prior. IV propanolol given with no further progression after 1 hour. I advised section. Reviewed with patient and procedural indications, risks including but not limited to pain, bleeding complications including hemorrhage possibly requiring hysterectomy, injury to bowel or bladder, infection, VTE, scarring. Benefits and alternatives reviewed. Patient and given opportunity to ask questions and questions answered to their satisfaction. Proceed with primary C/S. IV Ancef, Azithromycin. STROKE Vital Signs/Narrative: Vital Signs Temp Pulse Resp BP Pulse Ox 09/08/20 05:16 98.1 F 89 20 H 120/72 100 09/08/20 04:53 98.1 F 79 120/72 09/08/20 03:59 98.6 F 89 130/70 H 100 09/08/20 02:54 99.8 F H 92 129/77 H 09/08/20 01:50 100.0 F H 93 129/78 H
[2020-09-08 05:26] LABS: Bedside Glucose 64 mg/dL (70-110)
[2020-09-08 05:26] LABS: Bedside Glucose 67 mg/dL (70-110)
[2020-09-08] MEDS: Cefazolin 2 GM in 0.9% Normal Saline 100 ML IV (05:44)
--- NOTE | 2020-09-08 07:10 | PLAC_PTH ---
PATIENT: NATANAEL HARLEY LOC: WP U#:[id number] AGE/SX: 40/F ROOM: WP020 RE09/06/[address]: Dr. Chana Ramirez MD : [id number] BED: 1 DIS: 09/10/2020 SPEC #: [id number] RECD: 09/08/20 08:22 STATUS: MOISE REMayela #: [id number] DAVON: 09/08/20 07:[address]: Chana Rogers DEPT: SURGICAL PATHOLOGY RECD BY: Kumar Hagen ENTERED: 09/08/20 08:33 SP TYPE: PLACENTA OTHR DR: TD Brown No Primary Care Phys Tissues: Placenta, NOS Procedures: Surgery Specimen Level V HEADER OPERATION: Primary section PRE-OP DIAGNOSIS: 37 6/7wga, CHTN, GDM, prolonged rupture of membranes TISSUE SUBMITTED: Placenta MICROSCOPIC DIAGNOSIS Placenta: Placental disc - third trimester placenta (623 gm). - Focal area of peripheral infarction (2 cm in greatest dimension). - Focal increased intervillous and perivillous fibrin deposition. - Focal fibrinoid necrosis of villi. Membranes - no pathologic diagnosis. Umbilical cord - three blood vessels and no pathologic diagnosis. SJ:yasmany 09/13/20 MICROSCOPIC DESCRIPTION Slides are reviewed. GROSS DESCRIPTION SPECIMEN: PLACENTA / CLINICAL INFORMATION: A. Weight: 3.34 kg B. Gestational Age: 37 weeks C. Sex: Male PLACENTAL WEIGHT (POST FIXATION): 623 gm PLACENTAL DIMENSIONS: 21 x 18 x 3 cm PLACENTAL SHAPE: Usual ovoid PLACENTAL WEIGHT FOR GESTATIONAL AGE: Within >99th percentile MEMBRANES - Present A. Insertion: Marginal B. Site of rupture from edge: At edge of placental disc C. Color of membrane: Mota-bates D. Abnormalities: None UMBILICAL CORD - Present A. Color: Mota-bates B. Insertion: Eccentric C. Length: 35 cm D. Diameter: 1 cm E. Number of vessels: Three F. Abnormalities: None PLACENTAL DISC - Present A. Color of surface: Mota-bates B. surface abnormalities: None C. Maternal cotyledons: Intact with minimal tears D. Attached retro placental clot: No clot E. Cut surface: Dark red and spongy F. Lesions: Serial sections reveal a white plaque-like lesion at the periphery of the placental disc measuring 2 x 1 cm. G. Separate clot: 8 x 5 x 1 cm SECTIONS SUBMITTED: 1. Umbilical cord ( end notched) 2. Umbilical cord, placental end 3. Membrane roll 4. Placental disc, and maternal surfaces, lesion 5. Placental disc, and maternal surfaces 6. Placental disc, and maternal surfaces AM:yasmany 09/09/20 More sections are submitted in cassettes 7 & 8, placental disc including maternal and surfaces. / SJ:yasmany 09/12/20 TC:5 CPT: 24719
--- NOTE | 2020-09-08 07:12 | OP.PCM_ITS ---
Problem List (1) Chronic hypertension Status: Chronic (2) 37 weeks gestation of Status: Acute (3) Gestational diabetes mellitus (GDM) Status: Acute Qualifiers: Gestational diabetes mellitus control: oral hypoglycemic-controlled Trimester: third trimester Qualified Code(s): O24.415 - Gestational diabetes mellitus in , controlled by oral hypoglycemic drugs (4) Tobacco smoking affecting Status: Acute Qualifiers: Trimester: third trimester Qualified Code(s): O99.333 - Smoking (tobacco) complicating , third trimester Delivery Classification: JOAQUIN Final LELE: 09/23/20 Gestational age: 37 Weeks and 6 Days [place] doctor who attended delivery (if requested by OB): Abdelrahman Lange Type of Anesthesia:: Epidural Date of Procedure: 09/08/20 Pre-Operative Diagnosis: 1. 37 6/7 weeks gestatation. 2. Gestational diabetes. 3. Chronic hypertension. 4. Arrest of dilation. 5. Prolonged rupture of membranes Post-Operative Diagnosis: 1. 37 6/7 weeks gestatation. 2. Gestational diabetes. 3. Chronic hypertension. 4. Arrest of dilation. 5. Prolonged rupture of membranes Indications: 40yo @ 37 6/7 weeks gestational age with hx GDM, chronic hypertension admitted with rupture of membranes. She progressed to 8cm however was unable to reach adequacy due to periodic pitocin discontinuation due to heart rate decelerations over approximately 12 hours and dose of propanolol IV. She was advised to proceed with section. Procedural r/b/i/a reviewed and pt desired to proceed. Indications for : - - Arrest of dilation Description of Procedure: The patient was taken to the operating room and spinal analgesia was administered. She is placed in a dorsal supine position with left lateral tilt. The perineum and abdomen were prepped and draped in sterile fashion. And the spinal was found to be adequate. A Pfannenstiel incision was made using a scalpel and brought down to incise the subcutaneous tissue and rectus fascia at the midline. Subcutaneous tissue was bluntly dissected off the fascia laterally. The fascial incision was dissected laterally and cephalad using curved Bejarano scissors. The superior leaflet of the rectus fascia was grasped using Georgiana clamps and bluntly dissected and sharply dissected from the underlying rectus muscle. In a similar fashion the inferior rectus fascia was dissected from the underlying muscle. The rectus muscles were bluntly at the midline. The peritoneum was identified and entered [sharply]. The bladder blade was placed into the abdomen and the vesicouterine peritoneal fold identified. The fold was incised and a bladder flap created. Bladder blade was then repositioned to the abdomen. A low transverse hysterotomy was made using the [Metzenbaum scissors] to level of the membranes. The hysterotomy was extended bluntly cephalad and caudad. The membranes were then ruptured revealing clear fluid. The head was elevated and brought to the level of the hysterotomy and the delivered revealing vigorous [male] . The cord was doubly clamped and cut after 30 seconds. The infant was passed to [facility] [nursery personnel]. The placenta was [expressed] from the uterus and appeared intact on inspection. The uterus was cleared of debris. The hysterotomy was then repaired using 0 Vicryl running lock suture. A second imbricating layer was also placed for additional hemostasis. The bladder blade was removed. The anterior cul-de-sac was cleared of debris. The peritoneum and rectus muscles were reapproximated using 2-0 Vicryl running suture. The rectus fascia was closed using 0 Vicryl running suture. The subcutaneous tissue was reapproximated using 2-0 Vicryl. The skin was closed using 4-0 Monocryl subcuticularly by the TRANS ROUTER under my supervision. This was followed by Neisha and a Mepilex silver occlusive dressing was placed over the incision. The fundus was firm. The patient was then transferred to the recovery room without complication. Sponge, instrument, and needle counts were correct ?2. Infant weight 3340g Amniotic Membrane Rupture Type: Spontaneous Amniotic Fluid Description: Clear Placenta Disposition: [facility] Drain: Guerrero to straight drain Fluids Replaced: 600 ml Cord Entanglement: Around neck x 1, loose Nuchal Cord Compression: Without compression Cord Vessel Description: 3 Vessels Esitmated Blood Loss (ml): 650 ml Gender: Male (1 minute): 8 (5 minute): 9 Delayed cord clamping: Yes Antibiotic Given: Ancef 2 grams IV x1, Zithromax 500 mg/5 mL X1 Pt instructed on risks of surgery: Bleeding, Anesthesia Risks, Infection, Injury to surrounding structure(s) including bowel and bladder Complications: None - Admit VTE Documentation VTE Present on Admission: No VTE Mechan Device Prophylaxis: SCD's VTE Pharm Prophylaxis ordered?: Yes
[2020-09-08] MEDS: Oxytocin 30 units/NS 500 ml 30 UNITS/500 ML IV.SOLN 167 UNITS IV (07:30)
[2020-09-08 08:22] LABS: Pathology Specimen OB SEE PATHOLOGY REPORT
[2020-09-08 09:06] LABS: Bedside Glucose 109 mg/dL (70-110)
[2020-09-08] MEDS: Labetalol 100 MG Tablet PO ×2 (09:08→21:53)
[2020-09-08] MEDS: Lactated Ringers 1,000 ML 100 ML IV (10:55)
[2020-09-08] MEDS: Ketorolac 30 MG/ML Syringe IV ×2 (12:47→19:10)
[2020-09-08] MEDS: Senna/Docusate Sodium 1 Tablet PO (12:48)
[2020-09-08] MEDS: Acetaminophen 500 MG Tablet 1000 MG PO ×2 (12:48→19:09)
[2020-09-08] MEDS: Prenatal Vits Tablet 1 TABLET PO (12:48)
[2020-09-08] MEDS: Heparin Injection (Vial) 5,000 UNIT/ML VIAL 5000 UNIT SC ×2 (15:06→21:53)
[2020-09-08] MEDS: 0.9% Saline Lock 10 ML Syringe IV (19:09)
[2020-09-09] VITALS (7 sets, daily range): BP systolic 124–164; BP diastolic 80–108; PULSE 86–91; RESP 14–18; TEMP 36.3–36.8; O2SAT 95–97
[2020-09-09] MEDS: Acetaminophen 500 MG Tablet 1000 MG PO ×4 (01:05→19:44)
[2020-09-09] MEDS: 0.9% Saline Lock 10 ML Syringe IV (01:05)
[2020-09-09] MEDS: Ibuprofen 600 MG Tablet PO ×4 (01:32→19:44)
[2020-09-09 06:21] LABS: Hematocrit 30.3 % (37-47); Hemoglobin 8.9 g/dL (12.0-15.0); Mean Corp Hgb Conc 29.4 g/dL (32-36); Mean Corpuscular Hgb 23.3 pg (27.0-32.0); Mean Corpuscular Volume 79.3 fL (81-99); Mean Platelet Vol. 11.2 fl (6.2-12.0); Platelet Count 265 K/mm3 (150-450); RBC Distribution Width CV 16.7 % (11.6-14.6); RBC Distribution Width SD 47.2 fl (35.1-43.9); Red Blood Count 3.82 M/mm3 (4.2-5.4); White Blood Count 14.6 K/mm3 (4.4-11.0)
[2020-09-09 06:31] LABS: Bedside Glucose 116 mg/dL (70-110)
[2020-09-09] MEDS: oxyCODONE 5 MG Tablet PO ×2 (07:12→20:47)
--- NOTE | 2020-09-09 07:21 | PCM.PN.OB ---
Patient Problems: Active and Suspected Problems Advanced maternal age (AMA) in (Acute) 37 weeks gestation of (Acute) Gestational diabetes mellitus (GDM) (Acute) Gestational hypertension (Acute) Tobacco smoking affecting (Acute) Subjective: No overnight complaints. Pain well controlled. Breast-feeding. - Physical Exam Vitals/I&O's: Vital Signs Temp Pulse Resp BP Pulse Ox 98.2 F 88 16 124/80 H 95 09/09/20 03:37 09/09/20 06:00 09/09/20 06:00 09/09/20 03:37 09/09/20 06:00 Oxygen Delivery Method Room Air Weight: 176 lb 9.444 oz Body Mass Index (BMI) 30.3 Intake and Output for Last 24 Hours 09/07/20 09/08/20 09/09/20 23:59 23:59 23:59 Intake Total 6040.53 / 6040.53 3693.39 / 3693.39 Output Total 1200 / 1200 2800 / 2800 Balance 4840.53 / 4840.53 893.39 / 893.39 General: Alert, Oriented x3, Cooperative, No apparent distress HEENT: Atraumatic, Normocephalic Oral: Moist Mucosa Neck: Supple Abdomen: Soft, Non Tender, Gravid - Fundus firm and below umbilicus, - - Incision clean dry and intact Extremities: No clubbing, No cyanosis, No edema Psych/Mental Status: Normal Affect, Appropriate, Alert and oriented to time, place, person, mood and affect Laboratory Results 09/08/20 08:57: POC Glucose 109 09/09/20 06:07: POC Glucose 116 H 09/09/20 06:10: WBC 14.6 H, RBC 3.82 L, Hgb 8.9 L, Hct 30.3 L, MCV 79.3 L, MCH 23.3 L, MCHC 29.4 L, RDW Std Deviation 47.2 H, RDW Coeff of Richard 16.7 H, Plt Count 265, MPV 11.2 Current Medications Acetaminophen (Acetaminophen 500 Mg Tablet) 1,000 mg PO Q6H [facility] Last Admin: 09/09/20 06:59 Dose: 1,000 mg Documented by: Bisacodyl (Bisacodyl 10 Mg Suppository) 10 mg RECTAL UD PRN PRN Reason: If no BM Heparin Sodium (Porcine) (Heparin Injection (Vial) 5,000 Unit/Ml Vial) 5,000 unit SC Q12 [facility] Last Admin: 09/08/20 21:53 Dose: 5,000 unit Documented by: Hydrocortisone (Hydrocortisone 2.5% Crm) 1 applic TOPICAL TID PRN PRN; Protocol PRN Reason: Discomfort Ibuprofen (Ibuprofen 600 Mg Tablet) 600 mg PO Q6H [facility] Last Admin: 09/09/20 06:59 Dose: 600 mg Documented by: Labetalol HCl (Labetalol 100 Mg Tablet) 100 mg PO BID [facility] Last Admin: 09/08/20 21:53 Dose: 100 mg Documented by: Methylergonovine Maleate (Methylergonovine 0.2 Mg/Ml Ampul) 0.2 mg IM X1 PRN PRN Reason: Uterine Atony Nicotine (Nicotine 21 Mg Patch) 21 mg TRANSDERM. DAILY [facility] Last Admin: 09/09/20 04:39 Dose: 21 mg Documented by: Ondansetron HCl (Ondansetron 4 Mg/2 Ml Vial) 4 mg IV Q4H PRN PRN PRN Reason: NAUSEA Last Admin: 09/07/20 09:00 Dose: 4 mg Documented by: Oxycodone HCl (Oxycodone 5 Mg Tablet) 5 - 10 mg PO Q4H PRN PRN PRN Reason: Pain Score 4-10 Last Admin: 09/09/20 07:12 Dose: 10 mg Documented by: Multivit/Folic Acid/Iron ( Vits Tablet) 1 tablet PO DAILY@1200 [facility] Last Admin: 09/08/20 12:48 Dose: 1 tablet Documented by: Prochlorperazine Edisylate (Prochlorperazine 10 Mg/2 Ml Vial) 10 mg IV Q6H PRN PRN PRN Reason: NAUSEA Senna/Docusate Sodium (Senna/Docusate Sodium 1 Tablet) 0 tablet PO DAILY [facility] Last Admin: 09/08/20 12:48 Dose: 1 tablet Documented by: Simethicone (Simethicone 80 Mg Tablet) 80 mg PO HS PRN PRN Reason: Indigestion/stomach pain Sodium Chloride (0.9% Saline Lock 10 Ml Syringe) 5 - 15 ml IV UD PRN PRN Reason: SALINE FLUSH Last Admin: 09/09/20 01:05 Dose: 10 ml Documented by: Medical Necessity - Tobacco Use Smoking Status: Former smoker Assessment/Plan All Active Problems Missed with demise before 20 completed weeks of gestation (Acute) 32 weeks gestation of (Acute) Advanced maternal age (AMA) in (Acute) 37 weeks gestation of (Acute) Gestational diabetes mellitus (GDM) (Acute) Gestational hypertension (Acute) Tobacco smoking affecting (Acute) Postoperative day 1 status post primary section for failure to progress and nonreassuring heart tones. Pain well controlled. Breast-feeding. GDM A, will need 2-hour Glucola at visit. Chronic hypertension we will follow-up with primary care physician. Okay to discharge home today if care services manager okay with discharging baby home.
--- NOTE | 2020-09-09 07:23 | DCINST_ITS ---
Discharge Diet: No Restrictions Discharge Activity: Return to Normal Activity, May not drive while taking narcotic pain medications., - - No tub baths for 2 weeks May resume sexual activity in: 2 weeks Lifting Restrictions: No lifting over 25 to 30 pounds for 2 weeks to 3 weeks Call your doctor if your incision/area has: Foul Smelling Discharge Call your doctor if you observe: Fever of 101 or Higher, Shortness of breath, Chest pain Additional Instructions: If you experience any of the following, contact your healthcare provider. * Bleeding that soaks a pad every hour for 2 hours * Fever 100.4 or higher * Unrelieved incision or abdominal pain * Swelling, redness, discharge or bleeding from your incision or episiotomy site * Your incision begins to separate * Problems urinating (including inability to urinate or burning while urinating). * Visual changes * Severe headache * Flu-like symptoms * Pain or redness in one of both of your breasts * Pain, warmth, tenderness or swelling in your legs, especially the calf area * Frequent nausea and vomiting * Symptoms of depression or anxiety If you experience any of the following, call 911 or go to the nearest Emergency Room. * Chest pain * Problems breathing * Seizure activity * Partial or complete paralysis of a body part, slurred speech, weakness or drooping of the face, or a sudden inability to walk or hold your balance Allergies/Adverse Reactions: Allergies No Known Allergies Allergy (Verified 09/06/20 16:15) Medications to take at Discharge Glyburid-Metformin 1.25-250 mg 1.25 09/06/20 Labetalol [Trandate] 100 mg PO BID 09/06/20 Prenatabs FA 09/06/20 Oxycodone [Oxyir] 5 mg PO Q6H PRN PRN 4 Days #16 tablet 09/09/20 The following prescriptions were given: Oxycodone [Oxyir] 5 mg PO Q6H PRN PRN 4 Days #16 tablet PRN Reason: Pain Score 6-10 Transmission Status: Received by ANGIE SANCHES Follow-Up: Call to make an appointment with your doctor for an incision check in 1-2 weeks. You will also need a 6 week post- follow up appointment. Test results from this visit will be discussed in further detail at your follow- up appointment, if applicable. Please Follow Up With: Richmond Pleitez MD When: 2 weeks Primary Care Physician: Care Physician,No Primary [Primary Care Provider] -
[2020-09-09] MEDS: Heparin Injection (Vial) 5,000 UNIT/ML VIAL 5000 UNIT SC ×2 (10:00→22:52)
[2020-09-09] MEDS: Senna/Docusate Sodium 1 Tablet PO (10:00)
[2020-09-09] MEDS: Prenatal Vits Tablet 1 TABLET PO (10:00)
[2020-09-09] MEDS: Labetalol 100 MG Tablet PO ×2 (10:00→20:47)
--- NOTE | 2020-09-09 13:50 | CASEMGMT ---
Social Work Assessment Labor and Delivery Unit Date of Referral: 09/08/2020 Time of Referral: 12:51p Date of Intervention: 09/09/2020 Time of Intervention: 13:50 Reason for Referral: Referral due to history of anxiety and depression. MOB with high anxiety during hospitalization History obtained from: Mother of baby (MOB) and medical chart. Household composition: MOB and father of baby (FOB), - Nathan Graham Patient's parent/guardian status: MOB and FOB report have been together for 7 years, for 3 of those years together. Financial Status: MOB and FOB report limited income as FOB has been out of work due to COVID-19 pandemic. MOB reports had applied for Medicaid in the past and was covered for 1 month, but lost the insurance due to not turning in verifications on time. MOB reports we procrastinate. Infant Supplies: MOB and FOB report have all needs met for baby stating to have more than enough. Confirmed supplies such as crib, car seat, clothes, diapers, wipes, etc. Childcare/Caregiver(s): MOB and FOB will be main caregivers for Bijan lynn. Transportation: No issues reported Programs/Agencies Involved: MOB denies any current agency involvement and is open to referrals to [facility] and WIC. Children Services/Legal Issues: None reported Behavioral Health Issues: Mental Health History: MOB reports history of anxiety and depression and states prior to having baby was on Lexapro. MOB admits to high anxiety throughout hospitalization and is interested in starting on medication while in the hospital to help with managing anxiety. Informed MOB this worker will update nursing staff and that MOB she also discuss issues with physician during rounding. Substance Use History: MOB denies any history of substance abuse. Maternal and Infant Drug Screens: Per report, MOB with positive tox screen on 03/24/2020 for amphetamines due to Adderall prescription. Family/Social Stressors: MOB reports stress with mental health and lack of sleep since giving . Support Systems: MOB and FOB report good support from family. Depression and Anxiety/Shaken Baby/Safe Sleeping: Much education provided on PPD. Educational handouts and resources given and reviewed. ASSESSMENT: Met with MOB and FOB in room. Introduced role and reason for referral. MOB and FOB both engaged in caring for Bijan lynn. Discussed reason for referral. MOB openly discussed anxiety and inquired about starting on medication while in hospital. MOB reports has been on Lexapro in the past. MOB reports also was involved in counseling in the past. MOB and FOB are first time parents. Much support and education provided. MOB open to referral to [facility] and information provided on [place]. ROBINA mooney is self-pay and had Medicaid for only one month before losing it due to not getting verifications in on time. Encouraged MOB to follow up with [facility] to reapply for Medicaid. MOB and FOB deny any further issues or concerns. Nursing updated on the above. Safe Plan of Care for related to substance use: MOB and FOB report to be smokers. MOB states they will not be smoking in the home. PLAN: Home with resources provided. Referral to [facility]. No other services requested or indicated.
[2020-09-10] MEDS: Acetaminophen 500 MG Tablet 1000 MG PO ×3 (01:56→16:19)
[2020-09-10 01:58] VITALS: BP 143/86; O2SAT 97
[2020-09-10] MEDS: Ibuprofen 600 MG Tablet PO ×3 (02:23→16:19)
[2020-09-10] MEDS: oxyCODONE 5 MG Tablet PO (05:51)
--- NOTE | 2020-09-10 09:56 | PN.OBGYN_ITS ---
Patient Problems: Active and Suspected Problems Advanced maternal age (AMA) in (Acute) 37 weeks gestation of (Acute) Gestational diabetes mellitus (GDM) (Acute) Gestational hypertension (Acute) Tobacco smoking affecting (Acute) Subjective: POD#2 Lochia minimal. Pain controlled. . Feeling anxious because she wants to go home. Denies anxiety about taking baby home. Has a dying dog at home.Tearful. Partner appears very supportive at bedside. - Physical Exam Vitals/I&O's: Vital Signs Temp Pulse Resp BP Pulse Ox 98.2 F 88 17 168/105 H 97 09/10/20 09:54 09/10/20 01:58 09/10/20 09:54 09/10/20 09:54 09/10/20 01:58 Oxygen Delivery Method Room Air Weight: 80.1 kg Body Mass Index (BMI) 30.3 Intake and Output for Last 24 Hours 09/08/20 09/09/20 09/10/20 23:59 23:59 23:59 Intake Total 3693.39 / 3693.39 Output Total 2800 / 2800 Balance 893.39 / 893.39 General: Alert, Oriented x3, No apparent distress HEENT: Atraumatic, Normocephalic Lungs: Normal air movement Cardiovascular: Regular rate Abdomen: Soft - Mildly tender, dressing c/d. uterus below umbilicus Extremities: No edema Neurological: Cranial nerves II-XII grossly intact Current Medications Acetaminophen (Acetaminophen 500 Mg Tablet) 1,000 mg PO Q6H [facility] Last Admin: 09/10/20 01:56 Dose: 1,000 mg Documented by: Bisacodyl (Bisacodyl 10 Mg Suppository) 10 mg RECTAL UD PRN PRN Reason: If no BM Heparin Sodium (Porcine) (Heparin Injection (Vial) 5,000 Unit/Ml Vial) 5,000 unit SC Q12 [facility] Last Admin: 09/09/20 22:52 Dose: 5,000 unit Documented by: Hydrocortisone (Hydrocortisone 2.5% Crm) 1 applic TOPICAL TID PRN PRN; Protocol PRN Reason: Discomfort Ibuprofen (Ibuprofen 600 Mg Tablet) 600 mg PO Q6H [facility] Last Admin: 09/10/20 02:23 Dose: 600 mg Documented by: Labetalol HCl (Labetalol 100 Mg Tablet) 100 mg PO BID [facility] Last Admin: 09/09/20 20:47 Dose: 100 mg Documented by: Methylergonovine Maleate (Methylergonovine 0.2 Mg/Ml Ampul) 0.2 mg IM X1 PRN PRN Reason: Uterine Atony Nicotine (Nicotine 21 Mg Patch) 21 mg TRANSDERM. DAILY [facility] Last Admin: 09/09/20 04:39 Dose: 21 mg Documented by: Ondansetron HCl (Ondansetron 4 Mg/2 Ml Vial) 4 mg IV Q4H PRN PRN PRN Reason: NAUSEA Last Admin: 09/07/20 09:00 Dose: 4 mg Documented by: Oxycodone HCl (Oxycodone 5 Mg Tablet) 5 - 10 mg PO Q4H PRN PRN PRN Reason: Pain Score 4-10 Last Admin: 09/10/20 05:51 Dose: 10 mg Documented by: Multivit/Folic Acid/Iron ( Vits Tablet) 1 tablet PO DAILY@1200 [facility] Last Admin: 09/09/20 10:00 Dose: 1 tablet Documented by: Prochlorperazine Edisylate (Prochlorperazine 10 Mg/2 Ml Vial) 10 mg IV Q6H PRN PRN PRN Reason: NAUSEA Senna/Docusate Sodium (Senna/Docusate Sodium 1 Tablet) 0 tablet PO DAILY [facility] Last Admin: 09/09/20 10:00 Dose: 2 tablet Documented by: Simethicone (Simethicone 80 Mg Tablet) 80 mg PO [facility] PRN PRN Reason: Indigestion/stomach pain Sodium Chloride (0.9% Saline Lock 10 Ml Syringe) 5 - 15 ml IV UD PRN PRN Reason: SALINE FLUSH Last Admin: 09/09/20 01:05 Dose: 10 ml Documented by: Medical Necessity - Tobacco Use Smoking Status: Former smoker Assessment/Plan All Active Problems Missed with demise before 20 completed weeks of gestation (Acute) 32 weeks gestation of (Acute) Advanced maternal age (AMA) in (Acute) 37 weeks gestation of (Acute) Gestational diabetes mellitus (GDM) (Acute) Gestational hypertension (Acute) Tobacco smoking affecting (Acute) 40 yo POD#2 s/p primary section. Complicated by: anxiety and depression, GDMA2 (will need 2hr GTT at 6w visit), chronic hypertension on labetolol 100 mg BID. 1. Chronic HTN -Blood pressures 140-150s systolic. -Patient does not feel well on labetolol, will change to procardia 30 mg daily. Pt historically noncompliant with medications at home, however appears willing to try this new medication. -Monitor BPs through at least this afternoon. 2. Anxiety/depression -Patient tearful in room. Desires home going. -Nursing concern with patient agitation this morning as patient is anxious to go home, left the floor for about 1 hour. Social work to see today prior to discharge. -Will start zoloft 50 mg daily and hydroxyzine 25 mg TID prn anxiety -Patient will need follow up this week for BP check and to check on patient with new medications Consider home this evening or tomorrow
[2020-09-10 10:06] VITALS: O2SAT 100
[2020-09-10] MEDS: Senna/Docusate Sodium 1 Tablet PO (10:08)
[2020-09-10] MEDS: Labetalol 100 MG Tablet PO (10:09)
[2020-09-10] MEDS: Prenatal Vits Tablet 1 TABLET PO (10:09)
--- NOTE | 2020-09-10 10:38 | NURSING ---
Patient returned to unit at 0935. Patient was tearful, but was able to converse. Complied with assessment and vital signs. Dr. Pleitez notified of patient behavior this morning. hosted services analyst notified and will follow up with patient at bedside prior to discharge.
[2020-09-10] MEDS: Sertraline 50 MG Tablet PO (11:52)
[2020-09-10] MEDS: NIFEdipine 30 MG Tablet PO (11:53)
[2020-09-10] MEDS: hydrOXYzine PAM 25 MG Capsule PO (11:54)
--- NOTE | 2020-09-10 12:10 | CASEMGMT ---
SOCIAL WORK Updated by nursing this morning that MOB had left unit for about 2 hours. MOB was anxious, pacing in room and wanting to leave. Nursing reported FOB stayed with baby. This worker to complete report to Children Services and follow up with MOB prior to discharge. Nursing requested this worker come later this afternoon as MOB is napping at this time. Call to Children Services. Report made to Jose regarding concerns for MOB's mental health, erratic behavior, and difficulty coping. Updated MOB did leave the unit this morning for about 2 hours. Baby was left in care of Nathan DOZIER. Informed Jose, MOB is open to referrals for [facility] and has been started on medications for anxiety. This worker recommending case for Alternative Response. Jose reports will discuss with hatch supervisor and if plan is to open case with face to face visit while still admitted will call this worker back with time of arrival. Nursing updated. Agustin Whiitng, BRASS MOLDER HELPER, STRIP PRESSER
[2020-09-10 15:45] VITALS: PULSE 80; O2SAT 98
[2020-09-10] MEDS: Heparin Injection (Vial) 5,000 UNIT/ML VIAL 5000 UNIT SC (15:47)
[2020-09-10 15:58] VITALS: BP 144/93; PULSE 75; RESP 16; TEMP 36.8; O2SAT 99
--- NOTE | 2020-09-10 16:00 | CASEMGMT ---
SOCIAL WORK This worker spoke with Jose from Children Services. Per Jose, no plan to come in to see MOB and baby at this time. This worker met with MOB and FOB in room. Discussed events of this morning. MOB reports frustrations with still being in the hospital. MOB states I just want to go home. Much emotional support provided. Discussed MOB following up with counseling. MOB reports, I'm already in counseling with [facility] in [place]. MOB denies need for this worker to set up appointment. Follow up encouraged. MOB reports has been started on medications. FOB reports baby's follow up appointment has been made for Saturday, 09/12 at 8:35am. MOB and FOB still in agreement with referral to [facility]. Referral to be completed. Nursing updated on the above. Plan: Discharge- [facility] referral Agustin Whiting, DRAWING KILN SUPERVISOR, PROFESSOR OF [employer] STUDIES
== END 2020-09-10 17:00 | disposition home or self-care (01) | DRG 788 ==
LOC: OBT 17:00 → WP 17:00
PROVIDERS: Obstetrics & Gynecology; Admitting Provider Obstetrics & Gynecology; Referring Provider Obstetrics & Gynecology; Visit Provider Obstetrics & Gynecology
DX: O13.4 Gestational [pregnancy-induced] hypertension without significant proteinuria, complicating childbirth (principal); O24.420 Gestational diabetes mellitus in childbirth, diet controlled; O99.334 Smoking (tobacco) complicating childbirth; F17.200 Nicotine dependence, unspecified, uncomplicated; O76 Abnormality in fetal heart rate and rhythm complicating labor and delivery; O69.81X0 Labor and delivery complicated by cord around neck, without compression, not applicable or unspecified; O62.0 Primary inadequate contractions; Z3A.37 37 weeks gestation of pregnancy; Z37.0 Single live birth
CPT/HCPCS: 59025; 59050; 82962; 84112; 85025; 85027; 86850; 86900; 86901; 88307; 99218; J7030; J7120; A4216; G0378; J2405

== ENCOUNTER 2023-02-03 00:21 | Emergency (ER) | payer MEDICAID, SELFPAY ==
[2023-02-03 00:21] VITALS: BP 136/92; PULSE 101; RESP 16; TEMP 36.6; O2SAT 100; BMI 26.3
[2023-02-03 01:19] LABS: Mucous, Urine 0 SEEN /hpf (<or=2+); White Blood Cells 0 SEEN /hpf (0-5)
[2023-02-03 01:22] LABS: Color, Urine Yellow (Yellow); Glucose, Dipstick Normal (Normal); Ketone-Dipstick Negative (Negative); Leukocyte Esterase-Dipstick Negative /ul (Negative); Nitrite-Dipstick Negative (Negative); Occult Blood-Urine 50 /ul (Negative); Protein-Dipstick 15 mg/dl (Negative); Urine Bilirubin Dipstick Negative (Negative); Urine Clarity Clear (Clear); Urine Urobilinogen Normal (Normal); Urine pH 6.5 (5.0 - 8.0)
[2023-02-03 01:33] LABS: Amorphous Sediment 1+; Bacteria 1+ /hpf (None Seen); Red Blood Cells-Urine 0-5 SEEN /hpf (0-5); Squamous Epithelial Cells - UA 0-5 SEEN /hpf (5-10)
[2023-02-03 01:40] LABS: hCG Titer Quant., Serum 2875 mIU/mL (1-3)
--- NOTE | 2023-02-03 03:12 | ED.VIS.FEGU ---
HPI HPI - Female History of Present Illness Chief Complaint: Vag Bld, Preg Narrative Narrative: Patient is a 42-year-old female with past medical history of hypertension who states that she took a home test roughly 2 weeks ago which was positive. She states this evening she went to the bathroom and wiped and there was a small amount of pink/red blood. She reports a few hours later she passed a clot which concerned her. She states that since that time there is been no further bleeding and she denies any abdominal pain associated with this but states that she believes her blood type is O- which require a RhoGAM shot with the bleeding and therefore comes in for evaluation [facility] Home Medications Glyburid-Metformin 1.25-250 mg 1.25 gestational dm 09/06/20 [History Last Taken Unknown] Prenatabs FA 09/06/20 [History Last Taken Unknown] labetalol 100 mg tablet 100 mg PO BID htn 09/06/20 [History Last Taken Unknown] blood pressure test kit-medium ##1 09/09/20 [Rx Last Taken Unknown] amoxicillin 500 mg capsule 500 mg PO TID 7 days #21 caps 02/03/23 [Rx Last Taken Unknown] vits no.124-ferrous fum 27 mg iron-folic acid 800 mcg tablet ( Vitamin) 1 tab PO DAILY 30 days #30 tabs 02/03/23 [Rx Last Taken Unknown] Allergy/AdvReac Type Severity Reaction Status Date / Time No Known Allergies Allergy Verified 02/03/23 00:25 Social History Smoking Status: Former smoker [facility] ED Constitutional Constitutional ED: Denies chills or fever(s) ENT ENT ED: Denies sore throat Cardiovascular Cardiovascular: Denies chest pain Respiratory/Chest Respiratory/Chest: Denies cough or dyspnea Gastrointestinal Gastrointestinal: Denies abdominal pain, diarrhea, nausea or vomiting Genitourinary Genitourinary ED: Reports other Details: Positive vaginal bleeding ; Denies dysuria Musculoskeletal Musculoskeletal: Denies myalgias Integumentary Denies rash Neurologic Neurologic: Denies headache(s) Hematologic/Lymphatic Hematologic/Lymphatic: Denies easy bleeding or easy bruising EXAM Physical Exam Const Vital Signs: 02/03/23 00:21 Temperature 98 F Temperature Source Temporal Pulse Rate 101 H Respiratory Rate 16 Blood Pressure 136/92 H Blood Pressure Mean 106 Pulse Ox 100 Oxygen Delivery Method Room Air Positive well nourished and well developed General Appearance ED: well developed; Negative for pallor Eyes PERRL and EOMs intact bilaterally General Eye ED: Negative for scleral icterus Neck supple Resp normal respiratory effort and clear to auscultation bilaterally Cardio regular rate and regular rhythm GI normal to inspection, nondistended, normoactive bowel sounds, soft to palpation, non-tender, non-distended and no masses GI Narrative: No voluntary guarding or rigidity no pulsatile mass Auscultation: normoactive bowel sounds Palpation: soft Narrative: Patient deferred Extremity normal to inspection Neuro oriented x3 and CN's II-XII intact bilaterally Sensorium / Orientation: alert Psych mental status grossly normal Skin no rashes or lesions noted General Skin Exam: Negative for jaundice or pallor MDM MDM MDM Narrative Medical decision making narrative: Patient presented slightly hypertensive but otherwise with stable vitals. She reported initially a small amount of blood which then worsened to passage of clot which she described as similar to passing clots on her menstrual cycle. However at this time there is no persistent bleeding or passage of clots. She denied any abdominal pain and therefore my concern for an ectopic is extremely low and do not feel the need to emergently call an ultrasound. The patient's blood type was confirmed O- and her hCG value is positive at 2000 [id number] consistent with early gestational age. Secondary to the fact patient reported passing of a clot I do feel appropriate to provide RhoGAM as she is Rh-. This was given in the ER. Her urine shows +1 bacteria without contamination or white blood cells and even though she has no dysuria with her state I will place her on a short round of amoxicillin. She also prescribed vitamins and was instructed to follow-up with [facility] for further evaluation. Patient states she has a [facility] and does not need a referral. Therefore at this time as she is hemodynamically stable and has no abdominal pain and my concern for ectopic is low she is otherwise safe for discharge History & Record Review Discussion w/independent historian: Patient and Family Lab Data Attestation: I reviewed the patient's lab results. Labs: Laboratory Results - last 24 hr 02/03/23 02/03/23 02/03/23 00:58 00:58 01:15 HCG, Quant 2875 H Urine Color Yellow Urine Clarity Clear Urine pH 6.5 Ur Specific [place] 1.020 Urine Protein 15 H Urine Glucose (UA) Normal Urine Ketones Negative Urine Occult Blood 50 H Urine Nitrite Negative Urine Bilirubin Negative Urine Urobilinogen Normal Ur Leukocyte Esterase Negative Urine RBC 0-5 SEEN Urine WBC 0 SEEN Ur Squamous Epith Cells 0-5 SEEN Amorphous Sediment 1+ Urine Bacteria 1+ Urine Mucus 0 SEEN Blood Type O NEGATIVE Discharge Plan Triage Chief Complaint: Vag Bld, Preg ED Provider: Jagdeep Saez Dx/Rx/DC Orders Clinical Impression: Vaginal bleeding affecting early , Hypertension Instructions: Bleeding During Early Prescriptions: New amoxicillin 500 mg capsule 500 mg PO TID 7 Days Qty: 21 0RF Vitamin 27 mg iron- 800 mcg tablet 1 tab PO DAILY 30 Days Qty: 30 0RF No Action Glyburid-Metformin 1.25-250 mg 1.25 Prenatabs FA labetalol 100 MG tablet 100 mg PO BID (DME) blood pressure test kit-medium 1 EACH kit 1 ea MC DAILY Qty: 1 0RF Rx Instructions: Use once daily after rest for 10 minutes with legs uncrossed Primary Care Provider: Care Physician,No Primary Referrals: Care Physician,No Primary [Primary Care Provider] - Activity Restrictions/Additional Instructions: Please follow-up with your [facility] for repeat evaluation. As your urine showed a small amount of bacteria today please take the antibiotic as directed and begin taking vitamins secondary to the early status. If you have any further concerns or worsening of symptoms please return to the ER for repeat evaluation Disposition Disposition: Home, Self Care
[2023-02-03 03:53] VITALS: O2SAT 98
== END 2023-02-03 03:56 | disposition home or self-care (01) ==
PROVIDERS: Emergency Provider Emergency Medicine; Visit Provider Emergency Medicine
DX: O46.90 Antepartum hemorrhage, unspecified, unspecified trimester (principal); O16.4 Unspecified maternal hypertension, complicating childbirth; Z87.891 Personal history of nicotine dependence
CPT/HCPCS: 81001; 84702; 86900; 86901; 99282; A4216; J2790

== ENCOUNTER → 2024-06-22 | Outpatient (CLI) | payer MEDICAID, SELFPAY | END | disposition home or self-care (01) | LOC: RAD.FUTURE 16:51 | PROVIDERS: Referring Provider Chiropractor; Visit Provider Chiropractor | DX: M54.6 Pain in thoracic spine (principal); M54.50 Low back pain, unspecified ==